=== PATIENT | male | born 1940 | race Caucasian/White ===

== ENCOUNTER 2016-04-06 14:07 | Emergency (ER) | payer MEDICARE, OTHER ==
[2016-04-06] MEDS ORDERED: DEXAMETHASONE 10 MG/ML VIAL PO STA (15:17)
[2016-04-06] MEDS ORDERED: ALBUTEROL NEB 2.5 MG/3 ML INH STA (15:17)
[2016-04-06] MEDS ORDERED: DEXAMETHASONE 10 MG/ML VIAL ONE (15:24)
[2016-04-06] MEDS ORDERED: CHERRY SYRUP 10 ML UDC PO ONE (15:24)
[2016-04-06] MEDS ORDERED: ALBUTEROL NEB 2.5 MG/3 ML INH ONE (15:31)
== END 2016-04-06 16:23 | disposition home or self-care (01) ==
DX: J06.9 Acute upper respiratory infection, unspecified (principal); J44.9 Chronic obstructive pulmonary disease, unspecified; J45.909 Unspecified asthma, uncomplicated; I25.10 Atherosclerotic heart disease of native coronary artery without angina pectoris; Z95.5 Presence of coronary angioplasty implant and graft; Z86.73 Personal history of transient ischemic attack (TIA), and cerebral infarction without residual deficits; Z79.82 Long term (current) use of aspirin
CPT/HCPCS: 94640; 99283; A9270; J7613

== ENCOUNTER 2016-07-12 08:02 | Outpatient (CLI) | payer MEDICARE, OTHER | END 2016-07-12 08:03 | disposition home or self-care (01) | DX: I10 Essential (primary) hypertension (principal); E67.3 Hypervitaminosis D; E78.2 Mixed hyperlipidemia; I25.10 Atherosclerotic heart disease of native coronary artery without angina pectoris; I77.9 Disorder of arteries and arterioles, unspecified ==

== ENCOUNTER 2017-01-14 07:10 | Outpatient (CLI) | payer MEDICARE, OTHER ==
[2017-01-14 12:28] LABS: ALBUMIN/GLOBULIN RATIO 1.6 (1.0-2.2); BILIRUBIN,TOTAL 0.7 mg/dL (0.2-1.0); BUN - BLOOD UREA NITROGEN 26 mg/dL (6-20); CALCIUM 8.7 mg/dL (8.5-10.3); CARBON DIOXIDE - CO2 22 mmol/L (21-32); CHLORIDE 107 mmol/L (101-111); CHOL/HDL RATIO 3.6 (<5.0); CHOLESTEROL 164 mg/dL; CREATININE 1.2 mg/dL (0.6-1.2); GFR - MDRD 59 (>89); GLUCOSE 101 mg/dL (70-100); HDL CHOLESTEROL 46 mg/dL; LDL/HDL RATIO 1.7 (<3.6); POTASSIUM 4.2 mmol/L (3.5-5.0); SODIUM 138 mmol/L (135-145); TOTAL PROTEIN 6.5 g/dL (6.7-8.2); TRIGLYCERIDES 206 mg/dL; VLDL CHOLESTEROL 41 mg/dL
== END 2017-01-14 07:11 | disposition home or self-care (01) ==
LOC: LAB.F 07:10
PROVIDERS: ATTEND Internal Medicine Cardiovascular Disease
DX: E67.3 Hypervitaminosis D (principal); E78.5 Hyperlipidemia, unspecified; I48.0 Paroxysmal atrial fibrillation; I10 Essential (primary) hypertension; I25.10 Atherosclerotic heart disease of native coronary artery without angina pectoris
CPT/HCPCS: 36415; 80053; 80061; 82306

== ENCOUNTER 2017-09-20 07:15 | Outpatient (CLI) | payer MEDICARE, OTHER ==
[2017-09-20 11:03] LABS: ALBUMIN 4.1 g/dL (3.2-5.5); ALBUMIN/GLOBULIN RATIO 1.6 (1.0-2.2); ALKALINE PHOSPHATASE 49 IU/L (42-121); ALT ALANINE AMINOTRANSFERASE 33 IU/L (10-60); AST ASPARTATE AMINOTRANSFERASE 33 IU/L (10-42); BILIRUBIN,TOTAL 0.9 mg/dL (0.2-1.0); BUN - BLOOD UREA NITROGEN 30 mg/dL (6-20); CALCIUM 9.2 mg/dL (8.5-10.3); CARBON DIOXIDE - CO2 28 mmol/L (21-32); CHLORIDE 100 mmol/L (101-111); CHOL/HDL RATIO 2.8 (<5.0); CHOLESTEROL 116 mg/dL; CREATININE 1.5 mg/dL (0.6-1.2); GFR - MDRD 45 (>89); GLUCOSE 93 mg/dL (70-100); HDL CHOLESTEROL 41 mg/dL; LDL CHOLESTEROL,CALCULATED 58 mg/dL; LDL/HDL RATIO 1.4 (<3.6); SODIUM 136 mmol/L (135-145); TOTAL PROTEIN 6.6 g/dL (6.7-8.2); VLDL CHOLESTEROL 17 mg/dL
== END 2017-09-20 07:16 | disposition home or self-care (01) ==
LOC: LAB.F 07:15
PROVIDERS: ATTEND Internal Medicine Cardiovascular Disease
DX: E78.5 Hyperlipidemia, unspecified (principal); E67.3 Hypervitaminosis D; I25.10 Atherosclerotic heart disease of native coronary artery without angina pectoris
CPT/HCPCS: 36415; 80053; 80061; 82306; 83721

== ENCOUNTER 2017-12-02 10:08 | Emergency (ER) | payer MEDICARE, OTHER ==
--- NOTE | 2017-12-02 11:08 | ED Physician Documentation ---
PD HPI UPPER EXT INJURY - Stated complaint Stated Complaint: LEFT ARM PX - Chief complaint Chief Complaint: Ext Problem - History obtained from History obtained from: Patient - History of Present Illness Location: Left, Arm Type of injury: Other (No injury.) Timing - onset: Today Worsened by: Moving, Palpating Associated symptoms: No: Weakness, Numbness Similar symptoms before: Has not had sx before - Additonal information Additional information: The patient is a 77-year-old male who presents with soreness in his left upper arm in the trapezius musculature. He awoke this morning with the discomfort. He denies any traumatic injury. The pain is worse when flexing or extending his elbow. He denies chest pain, shortness of breath, cough, or fever. He denies history of similar symptoms in the past. He is right hand dominant. His medical history is significant for coronary artery disease for which he is status post coronary stents. He also has history of CVA, which caused left sided weakness which has since resolved, without residual. Review of Systems Constitutional: denies: Fever Ears: denies: Tinnitus/ringing Nose: denies: Congestion Throat: denies: Sore throat Cardiac: denies: Chest pain / pressure Respiratory: denies: Dyspnea, Cough GI: denies: Abdominal Pain, Nausea, Vomiting : denies: Dysuria Skin: denies: Rash Musculoskeletal: reports: Extremity pain (left upper arm). denies: Neck pain, Back pain, Joint pain Neurologic: denies: Focal weakness, Numbness, Headache PD PAST MEDICAL HISTORY - Past Medical History Past Medical History: Yes Cardiovascular: Hypertension, High cholesterol, Coronary artery disease Respiratory: Asthma Neuro: Other Psych: Depression Other Past Medical History: Stroke - Past Surgical History Past Surgical History: Yes General: Appendectomy Cardiovascular: Coronary stent, Cardiac catheterization, Other - Present Medications Home Medications: Ambulatory Orders Medication Instructions Recorded Confirmed Atorvastatin Calcium [Lipitor] 40 mg PO DAILY 07/13/13 12/02/17 Desvenlafaxine Succinate [Pristiq 150 mg PO DAILY 07/13/13 12/02/17 ER] Metoprolol Succinate [Toprol Xl] 50 mg PO DAILY 07/13/13 12/02/17 Aspirin [Adult Low Dose Aspirin EC] 81 mg PO AC 12/03/13 12/02/17 Losartan [Cozaar] 1 09/14/18 - Allergies Allergies/Adverse Reactions: Allergies Allergy/AdvReac Type Severity Reaction Status Date / Time Sulfa (Sulfonamide Allergy Severe Hives Verified 12/02/17 10:18 Antibiotics) - Social History Does the pt smoke?: No Smoking Status: Never smoker Does the pt drink ETOH?: Yes Does the pt have substance abuse?: No - Immunizations Immunizations are current?: Yes PD ED PE NORMAL - Vitals Vital signs reviewed: Yes (Borderline systolic hypertension initially.) - General General: Alert and oriented X 3, Well developed/nourished - HEENT HEENT: Atraumatic - Neck Neck: No adenopathy, No JVD - Cardiac Cardiac: RRR - Respiratory Respiratory: No respiratory distress, Clear bilaterally - Abdomen Abdomen: Soft, Non tender - Back Back: No CVA TTP - Derm Derm: No rash - Extremities Extremities: No edema, No calf tenderness / cord, Other (There is tenderness to palpation over the left trapezius musculature. This reproduces his symptoms. The discomfort is exacerbated by extension of the left elbow against resistance. Distal neurovascular is intact.) - Neuro Neuro: Alert and oriented X 3, No motor deficit, No sensory deficit Results - Vitals Vitals: Oxygen O2 Source Room air - EKG (time done) 10:54 Rate: Rate (enter#) (60) Rhythm: NSR Intervals: Normal [place], Other (RSR' in lead V2.) Ischemia: Q waves (in leads III and aVF, consistent with previous inferior TX.) Compare to prior EKG: Unchanged from prior EKG Computer interpretation: Agree with computer - Rads (name of study) left humerus Radiology: Prelim report reviewed, EMP read contemporaneously, See rad report (No acute osseous abnormality.) PD MEDICAL DECISION MAKING - ED course Complexity details: reviewed results, re-evaluated patient, considered differential, d/w patient, d/w family ED course: The patient's presentation is most consistent with left trapezius muscle strain. Electrocardiogram reveals no evidence of acute myocardial injury. X-ray of the left humerus reveals no evidence of bony abnormality. I discussed with the patient and his the likely diagnosis, symptomatic treatment and outpatient follow-up, as well as potentially worrisome signs or symptoms that should prompt reevaluation in the emergency department. - Sepsis Event Vital Signs: Oxygen O2 Source Room air Departure - Departure Disposition: 01 Home, Self Care Clinical Impression: Muscle strain Condition: Stable Instructions: ED Strain Muscle Ext Comments: You can use Tylenol or ibuprofen if needed for discomfort. Apply ice pack to your triceps area intermittently for the next 2 or 3 days. Follow up with your primary physician if not improving within 1 week. Return to the emergency department if increasing pain, or otherwise worsening symptoms. Discharge Date/Time: 12/02/17 11:45
--- NOTE | 2017-12-02 11:14 | XRAY Report ---
Reason: left upper arm pain Procedure Date: 12/02/2017 Accession Number: [id number] / [id number] Procedure: XR - Humerus LT CPT Code: FULL RESULT: EXAM: LEFT HUMERUS RADIOGRAPHY EXAM DATE: 12/02/2017 11:03 AM. CLINICAL HISTORY: Left upper arm pain. No known trauma. COMPARISON: None. TECHNIQUE: 2 views. FINDINGS: Bones: Normal. No fractures or bone lesions. Joints: No effusions or subluxations in the visualized shoulder or elbow joints. There is mild degenerative change of the acromioclavicular joint. Soft Tissues: Normal. No soft tissue swelling. IMPRESSION: No acute osseous abnormality. RADIA
[2017-12-02 11:42] VITALS: BP 115/86
== END 2017-12-02 11:45 | disposition home or self-care (01) ==
LOC: ED 10:08
DX: S46.812A Strain of other muscles, fascia and tendons at shoulder and upper arm level, left arm, initial encounter (principal); X58.XXXA Exposure to other specified factors, initial encounter; R94.31 Abnormal electrocardiogram [ECG] [EKG]; I10 Essential (primary) hypertension; I25.10 Atherosclerotic heart disease of native coronary artery without angina pectoris; E78.00 Pure hypercholesterolemia, unspecified; Z95.5 Presence of coronary angioplasty implant and graft; Z79.82 Long term (current) use of aspirin; Z86.73 Personal history of transient ischemic attack (TIA), and cerebral infarction without residual deficits
CPT/HCPCS: 93005; 99283

== ENCOUNTER 2018-10-16 17:05 | Emergency (ER) | payer MEDICARE, OTHER ==
--- NOTE | 2018-10-16 17:41 | ED Physician Documentation ---
PD HPI URI - Stated complaint Stated Complaint: SORE THROAT - Chief complaint Chief Complaint: General - History obtained from History obtained from: Patient - History of Present Illness Timing - onset: How many weeks ago (1) Timing duration: Weeks (1) Timing details: Gradual onset, Still present (worsening steadily, with feeling of swelling in back of throat.) Associated symptoms: Sore throat. No: Fever, Nasal congestion, Swollen nodes, Dry cough, Chest pain, NVD Contributing factors: No: Sick contact, COPD / asthma Similar symptoms before: Has not had sx before Recently seen: Not recently seen Review of Systems Constitutional: denies: Fever, Myalgias Nose: reports: Congestion, Sinus pressure / pain. denies: Rhinorrhea / runny nose Throat: reports: Sore throat. denies: Oral lesions / sores Cardiac: denies: Chest pain / pressure, Palpitations Respiratory: denies: Cough GI: denies: Nausea, Vomiting, Diarrhea Skin: denies: Rash PD PAST MEDICAL HISTORY - Past Medical History Cardiovascular: Hypertension, High cholesterol, Coronary artery disease Respiratory: Asthma Neuro: Other Psych: Depression - Past Surgical History Past Surgical History: Yes General: Appendectomy Cardiovascular: Coronary stent, Cardiac catheterization, Other - Present Medications Home Medications: Ambulatory Orders Medication Instructions Recorded Confirmed Atorvastatin Calcium [Lipitor] 40 mg PO DAILY 07/13/13 12/02/17 Desvenlafaxine Succinate [Pristiq 150 mg PO DAILY 07/13/13 12/02/17 ER] Metoprolol Succinate [Toprol Xl] 50 mg PO DAILY 07/13/13 12/02/17 Aspirin [Adult Low Dose Aspirin EC] 81 mg PO AC 12/03/13 12/02/17 Losartan [Cozaar] 1 12/02/17 Cephalexin [Keflex] 500 mg PO TID #21 capsule 10/16/18 dexAMETHasone [Decadron] 4 mg PO DAILY #5 tablet 10/16/18 - Allergies Allergies/Adverse Reactions: Allergies Allergy/AdvReac Type Severity Reaction Status Date / Time Sulfa (Sulfonamide Allergy Severe Hives Verified 10/16/18 17:17 Antibiotics) - Social History Does the pt smoke?: No Smoking Status: Never smoker Does the pt drink ETOH?: Yes Does the pt have substance abuse?: No - Immunizations Immunizations are current?: Yes PD ED PE NORMAL - Vitals Vital signs reviewed: Yes - General General: Alert and oriented X 3, No acute distress, Well developed/nourished - HEENT HEENT: Ears normal, Moist mucous membranes. No: Pharynx benign (posterior pharynx with some edema of posterior soft palatte and moderate boggy edema of the uvula, with some redness. No exudate per se. ) - Neck Neck: Supple, no meningeal sign, No adenopathy - Cardiac Cardiac: RRR, No murmur - Respiratory Respiratory: Clear bilaterally - Abdomen Abdomen: Soft, Non tender Results - Vitals Vitals: Vital Signs - 24 hr 10/16/18 10/16/18 17:13 18:19 Temperature 37.2 C 36.8 C Heart Rate 86 83 Respiratory 20 18 Rate Blood Pressure 150/87 H 138/78 H O2 Saturation 96 96 Oxygen O2 Source Room air - Labs Labs: Laboratory Tests 10/16/18 17:28 Group A Strep Rapid Negative PD MEDICAL DECISION MAKING - ED course Complexity details: reviewed results, considered differential (edema and soreness without exudate nor adenopathy. Consider nongroup A strep or more concerning would be angioedema.), d/w patient Departure - Departure Disposition: 01 Home, Self Care Clinical Impression: Sore throat, Pharyngeal edema Condition: Stable Record reviewed to determine appropriate education?: Yes Instructions: ED Angioedema, ED Uvulitis Follow-Up: Maury Armando MD [Primary Care Provider] - Prescriptions: Cephalexin [Keflex] 500 mg PO TID #21 capsule dexAMETHasone [Decadron] 4 mg PO DAILY #5 tablet Comments: Stay well-hydrated. Decadron steroid for inflammation daily for the next 5 days. We will treat with cephalexin antibiotic at this point pending at least the throat culture results in 2 to 3 days. This may be an infectious process. However would be concerned for your lisinopril causing the swelling at the back of the throat noted suggest that you stop the lisinopril medication for now. Follow-up with your primary care regarding other medication instead. If the culture does show a true infection, then he can resume the blood pressure medicine as that would not be the cause. However if the culture is negative to mild and not be more inclined to think the lisinopril is the cause. Discharge Date/Time: 10/16/18 18:20
[2018-10-16] MEDS ORDERED: DEXAMETHASONE 10 MG/ML VIAL PO STA (17:59)
[2018-10-16] MEDS ORDERED: CHERRY SYRUP 10 ML UDC PO ONE (17:59)
[2018-10-16] MEDS ORDERED: cephALEXin 250 MG CAPSULE PO STA (17:59)
[2018-10-16] MEDS ORDERED: CETIRIZINE 10 MG TABLET PO STA (18:00)
[2018-10-16 18:20] VITALS: BP 138/78
== END 2018-10-16 18:20 | disposition home or self-care (01) ==
LOC: ED 17:05
DX: J02.9 Acute pharyngitis, unspecified (principal); J39.2 Other diseases of pharynx; I10 Essential (primary) hypertension
CPT/HCPCS: 87070; 87430; 99283; 99284; A9270

== ENCOUNTER 2019-01-23 07:56 | Outpatient (CLI) | payer MEDICARE, OTHER ==
[2019-01-23 10:19] LABS: ALBUMIN 3.9 g/dL (3.2-5.5); ALBUMIN/GLOBULIN RATIO 1.6 (1.0-2.2); ALKALINE PHOSPHATASE 42 IU/L (42-121); ALT ALANINE AMINOTRANSFERASE 27 IU/L (10-60); AST ASPARTATE AMINOTRANSFERASE 23 IU/L (10-42); BILIRUBIN,TOTAL 0.8 mg/dL (0.2-1.0); BUN - BLOOD UREA NITROGEN 27 mg/dL (6-20); CALCIUM 8.7 mg/dL (8.5-10.3); CARBON DIOXIDE - CO2 26 mmol/L (21-32); CHLORIDE 107 mmol/L (101-111); CHOLESTEROL 164 mg/dL; CREATININE 1.4 mg/dL (0.6-1.2); GFR - MDRD 49 (>89); GLUCOSE 103 mg/dL (70-100); HDL CHOLESTEROL 54 mg/dL; LDL CHOLESTEROL,CALCULATED 79 mg/dL; LDL/HDL RATIO 1.5 (<3.6); SODIUM 141 mmol/L (135-145); TOTAL PROTEIN 6.4 g/dL (6.7-8.2); VLDL CHOLESTEROL 31 mg/dL
== END 2019-01-23 07:57 | disposition home or self-care (01) ==
LOC: LAB.S 07:56
PROVIDERS: ATTEND Internal Medicine Cardiovascular Disease
DX: I25.10 Atherosclerotic heart disease of native coronary artery without angina pectoris (principal); I10 Essential (primary) hypertension; E78.5 Hyperlipidemia, unspecified
CPT/HCPCS: 36415; 80053; 80061; 83721

== ENCOUNTER 2019-11-11 17:58 | Emergency (ER) | payer MEDICARE, OTHER ==
--- NOTE | 2019-11-11 18:06 | ED Physician Documentation ---
PD HPI LOWER EXT INJURY - Stated complaint Stated Complaint: L FOOT PAIN - History obtained from History obtained from: Patient - History of Present Illness PD HPI LOW EXT INJURY LOCATION: Left - Additional information Additional information: 79-year-old gentleman otherwise healthy but remote history of gout presents with 2 days of left foot pain across the metatarsals with some warmth and redness. It was after traveling and getting dehydrated. He is not sure if it feels like previous gout but thinks it probably does. He is not on allopurinol. Declines pain medication on initial evaluation but probably would like something to go home with. There was no specific trauma. Review of Systems Constitutional: reports: Reviewed and negative Eyes: reports: Reviewed and negative Ears: reports: Reviewed and negative Nose: reports: Reviewed and negative PD PAST MEDICAL HISTORY - Past Medical History Cardiovascular: Hypertension, High cholesterol, Coronary artery disease Respiratory: Asthma Neuro: Other Psych: Depression - Past Surgical History Past Surgical History: Yes General: Appendectomy Cardiovascular: Coronary stent, Cardiac catheterization, Other - Present Medications Home Medications: Ambulatory Orders Medication Instructions Recorded Confirmed Atorvastatin Calcium [Lipitor] 40 mg PO DAILY 07/13/13 12/02/17 Desvenlafaxine Succinate [Pristiq 150 mg PO DAILY 07/13/13 12/02/17 ER] Metoprolol Succinate [Toprol Xl] 50 mg PO DAILY 07/13/13 12/02/17 Aspirin [Adult Low Dose Aspirin EC] 81 mg PO AC 12/03/13 12/02/17 Losartan [Cozaar] 1 12/02/17 Cephalexin [Keflex] 500 mg PO TID #21 capsule 10/16/18 dexAMETHasone [Decadron] 4 mg PO DAILY #5 tablet 10/16/18 Hydrocodone/Acetaminophen 1 - 2 tab PO Q6H PRN #10 tablet 11/11/19 [Hydrocodone-Acetamin 5-325 mg] Indomethacin [Indocin] 25 mg PO BIDWM #10 capsule 11/11/19 - Allergies Allergies/Adverse Reactions: Allergies Allergy/AdvReac Type Severity Reaction Status Date / Time Sulfa (Sulfonamide Allergy Severe Hives Verified 10/16/18 17:17 Antibiotics) - Social History Does the pt smoke?: No Smoking Status: Never smoker Does the pt drink ETOH?: Yes Does the pt have substance abuse?: No - Immunizations Immunizations are current?: Yes PD ED PE NORMAL - Vitals Vital signs reviewed: Yes - General General: Alert and oriented X 3, No acute distress - HEENT HEENT: PERRL, EOMI - Neck Neck: Supple, no meningeal sign, No bony TTP - Extremities Extremities: Other (There is warmth and redness that seems focused around the first MTP of the left foot. He has mild pain with range of motion of the same digit. Normal pedal pulses and cap refill. No swelling or pain at or above the ankle.) - Neuro Neuro: Alert and oriented X 3, Normal speech Results - Vitals Vitals: Vital Signs - 24 hr 11/11/19 11/11/19 11/11/19 18:08 18:12 19:06 Temperature 36.8 C 36.8 C 36.7 C Heart Rate 84 84 79 Respiratory 18 18 18 Rate Blood Pressure 116/73 116/73 107/68 O2 Saturation 98 98 97 Oxygen O2 Source Room air - Labs Labs: Laboratory Tests 11/11/19 11/11/19 18:10 18:10 WBC 7.4 RBC 3.79 L Hgb 12.5 L Hct 37.9 L MCV 100.0 H MCH 33.0 H MCHC 33.0 RDW 13.0 Plt Count 157 MPV 8.9 Neut # (Auto) 4.5 Lymph # (Auto) 1.5 [place] # (Auto) 1.2 H Eos # (Auto) 0.1 Baso # (Auto) 0.0 Absolute Nucleated RBC 0.00 Nucleated RBC % 0.0 Sodium 136 Potassium 4.2 Chloride 105 Carbon Dioxide 22 Anion Gap 9.0 BUN 28 H Creatinine 1.5 H Estimated GFR (MDRD) 45 L Glucose 117 H Uric Acid 6.8 Calcium 9.0 Total Bilirubin 0.7 AST 20 ALT 22 Alkaline Phosphatase 60 Total Protein 6.8 Albumin 4.0 Globulin 2.8 Albumin/Globulin Ratio 1.4 Lipase 60 H PD MEDICAL DECISION MAKING - ED course ED course: 79-year-old gentleman with history of gout presents with an examination most consistent with same. He did not want an x-ray. Departure - Departure Disposition: 01 Home, Self Care Instructions: ED Arthritis Gout, ED Diet Gout Prescriptions: Hydrocodone/Acetaminophen [Hydrocodone-Acetamin 5-325 mg] 1 - 2 tab PO Q6H PRN #10 tablet PRN Reason: Pain Indomethacin [Indocin] 25 mg PO BIDWM #10 capsule Comments: For records today you have a very mild anemia with a hemoglobin of 12.5, he matocrit of 37.9. You have mild renal insufficiency which is stable over the last couple of years with a creatinine of 1.5 and a GFR of 45. Your uric acid is on the high level of normal at 6.8 which is suggestive of gout. Return for new or worsening symptoms. Follow-up with your doctor in about 3 days if not better. Keep it elevated. Ice it as needed. Discharge Date/Time: 11/11/19 19:22
[2019-11-11 18:16] LABS: BASOPHILS % (AUTO) 0.4 %; EOSINOPHILS # (AUTO) 0.1 10^3/uL (0.0-0.7); EOSINOPHILS % (AUTO) 1.8 %; HGB - HEMOGLOBIN 12.5 g/dL (14.0-18.0); LYMPHOCYTES # (AUTO) 1.5 10^3/uL (1.5-3.5); LYMPHOCYTES % (AUTO) 20.5 %; MEAN PLATELET VOLUME 8.9 fL (7.4-11.4); MONOCYTES # (AUTO) 1.2 10^3/uL (0.0-1.0); NEUTROPHILS # (AUTO) 4.5 10^3/uL (1.5-6.6); NEUTROPHILS % (AUTO) 60.1 %; PLT - PLATELET COUNT 157 10^3/uL (130-450); RED BLOOD COUNT 3.79 10^6/uL (4.70-6.10); WHITE BLOOD COUNT 7.4 x10^3/uL (4.8-10.8)
[2019-11-11 18:30] LABS: ALBUMIN/GLOBULIN RATIO 1.4 (1.0-2.2); BILIRUBIN,TOTAL 0.7 mg/dL (0.2-1.0); CREATININE 1.5 mg/dL (0.6-1.2); TOTAL PROTEIN 6.8 g/dL (6.7-8.2); URIC ACID 6.8 mg/dL (2.6-7.2)
[2019-11-11] MEDS ORDERED: HYDROcod/ACET 5/325 Prepack 4 PO STA (18:48)
[2019-11-11] MEDS ORDERED: INDOMETHACIN 25 MG CAPSULE PO STA (18:48)
[2019-11-11] MEDS ORDERED: COLCHICINE 0.6 MG TABLET PO STA (18:48)
[2019-11-11 19:08] VITALS: BP 107/68
== END 2019-11-11 19:22 | disposition home or self-care (01) ==
LOC: ED 17:58
DX: M10.072 Idiopathic gout, left ankle and foot (principal); D64.9 Anemia, unspecified; N28.9 Disorder of kidney and ureter, unspecified; I10 Essential (primary) hypertension; Z79.82 Long term (current) use of aspirin
CPT/HCPCS: 36415; 80053; 83690; 84550; 85025; 99284; A9270

== ENCOUNTER 2020-01-24 08:24 | Outpatient (CLI) | payer MEDICARE, OTHER ==
[2020-01-24 15:26] LABS: ALBUMIN 4.1 g/dL (3.2-5.5); ALBUMIN/GLOBULIN RATIO 1.6 (1.0-2.2); ALKALINE PHOSPHATASE 52 IU/L (42-121); ALT ALANINE AMINOTRANSFERASE 38 IU/L (10-60); AST ASPARTATE AMINOTRANSFERASE 33 IU/L (10-42); BILIRUBIN,TOTAL 0.7 mg/dL (0.2-1.0); BUN - BLOOD UREA NITROGEN 31 mg/dL (6-20); CALCIUM 8.8 mg/dL (8.5-10.3); CARBON DIOXIDE - CO2 23 mmol/L (21-32); CHLORIDE 105 mmol/L (101-111); CHOL/HDL RATIO 2.6 (<5.0); CHOLESTEROL 155 mg/dL; CREATININE 1.4 mg/dL (0.6-1.2); GLUCOSE 118 mg/dL (70-100); HDL CHOLESTEROL 59 mg/dL; LDL CHOLESTEROL,CALCULATED 43 mg/dL; LDL/HDL RATIO 0.7 (<3.6); SODIUM 136 mmol/L (135-145); TOTAL PROTEIN 6.7 g/dL (6.7-8.2); VLDL CHOLESTEROL 53 mg/dL
== END 2020-01-24 08:25 | disposition home or self-care (01) ==
LOC: LAB.S 08:24
PROVIDERS: ATTEND Internal Medicine Cardiovascular Disease
DX: I25.10 Atherosclerotic heart disease of native coronary artery without angina pectoris (principal); E78.2 Mixed hyperlipidemia; I48.0 Paroxysmal atrial fibrillation
CPT/HCPCS: 36415; 80053; 80061; 83721

== ENCOUNTER 2020-02-23 22:38 | Outpatient (CLI) | payer MEDICARE, OTHER | END 2020-02-23 22:39 | disposition critical access hospital (66) | LOC: EMS 22:38 | PROVIDERS: ATTEND Surgery | DX: R06.02 Shortness of breath (principal); R23.1 Pallor | CPT/HCPCS: A0425; A0429 ==

== ENCOUNTER 2020-02-23 23:06 | Emergency (ER) | payer MEDICARE, OTHER ==
[2020-02-24 00:06] LABS: BASOPHILS % (AUTO) 0.4 %; EOSINOPHILS # (AUTO) 0.2 10^3/uL (0.0-0.7); HGB - HEMOGLOBIN 12.9 g/dL (14.0-18.0); LYMPHOCYTES # (AUTO) 1.3 10^3/uL (1.5-3.5); LYMPHOCYTES % (AUTO) 24.7 %; MEAN CORPUSCULAR HEMOGLOBIN 33.9 pg (27.0-31.0); MEAN CORPUSCULAR HGB CONC 34.2 g/dL (32.0-36.0); NEUTROPHILS # (AUTO) 2.9 10^3/uL (1.5-6.6); NEUTROPHILS % (AUTO) 53.5 %; PLT - PLATELET COUNT 123 10^3/uL (130-450); RED BLOOD COUNT 3.81 10^6/uL (4.70-6.10); RED CELL DISTRIBUTION WIDTH 13.3 % (12.0-15.0); WHITE BLOOD COUNT 5.4 x10^3/uL (4.8-10.8)
[2020-02-24 00:19] LABS: ALBUMIN 3.9 g/dL (3.2-5.5); ALBUMIN/GLOBULIN RATIO 1.5 (1.0-2.2); BILIRUBIN,TOTAL 0.7 mg/dL (0.2-1.0); CALCIUM 8.7 mg/dL (8.5-10.3); CREATININE 1.9 mg/dL (0.6-1.2); TOTAL PROTEIN 6.5 g/dL (6.7-8.2)
--- NOTE | 2020-02-24 01:03 | ED Physician Documentation ---
PD HPI DYSPNEA - Stated complaint Stated Complaint: SOA - Chief complaint Chief Complaint: Resp - History obtained from History obtained from: Patient - History of Present Illness Timing - onset: Today (tonight, approximately 1 hour [employer]) Timing - onset during: Light activity Timing - duration: Minutes Timing - details: Abrupt onset Pain level max: 0 Pain level now: 0 Improved by: Rest Worsened by: Exertion Associated symptoms: No: Fever, Cough, Wheezing, Chest pain / discomfort, Palpitations, Diaphoresis, Bilateral edema, Unilateral edema Similar symptoms before: Has not had sx before Recently seen: Not recently seen - Additional information Additional information: BBIA for dyspnea. Patient was watching TV at home, stood up to go to bed. Upon standing, he had sudden onset shortness of breath which worsened as he ambulated up stairs. He denies CP. He called 911. His symptoms resolved by the time EMS arrived and he is asymptomatic on this HPI. He denies h/o similar symptoms Review of Systems Constitutional: denies: Fever, Chills, Sweats Cardiac: reports: Reviewed and negative Respiratory: reports: Dyspnea. denies: Cough, Hemoptysis, Wheezing GI: reports: Reviewed and negative Musculoskeletal: denies: Extremity swelling PD PAST MEDICAL HISTORY - Past Medical History Cardiovascular: Hypertension, High cholesterol, Coronary artery disease Respiratory: Asthma Neuro: Other Endocrine/Autoimmune: None GI: None : None HEENT: None Psych: Depression Musculoskeletal: None Derm: None - Past Surgical History Past Surgical History: Yes General: Appendectomy Cardiovascular: Coronary stent, Cardiac catheterization, Other - Present Medications Home Medications: Ambulatory Orders Medication Instructions Recorded Confirmed Atorvastatin Calcium [Lipitor] 40 mg PO DAILY 07/13/13 12/02/17 Desvenlafaxine Succinate [Pristiq 150 mg PO DAILY 07/13/13 12/02/17 ER] Metoprolol Succinate [Toprol Xl] 50 mg PO DAILY 07/13/13 12/02/17 Aspirin [Adult Low Dose Aspirin EC] 81 mg PO AC 12/03/13 12/02/17 Losartan [Cozaar] 1 12/02/17 Cephalexin [Keflex] 500 mg PO TID #21 capsule 10/16/18 dexAMETHasone [Decadron] 4 mg PO DAILY #5 tablet 10/16/18 Hydrocodone/Acetaminophen 1 - 2 tab PO Q6H PRN #10 tablet 11/11/19 [Hydrocodone-Acetamin 5-325 mg] Indomethacin [Indocin] 25 mg PO BIDWM #10 capsule 11/11/19 - Allergies Allergies/Adverse Reactions: Allergies Allergy/AdvReac Type Severity Reaction Status Date / Time Sulfa (Sulfonamide Allergy Severe Hives Verified 02/23/20 23:17 Antibiotics) - Social History Does the pt smoke?: No Smoking Status: Never smoker Does the pt drink ETOH?: Yes Does the pt have substance abuse?: No - Immunizations Immunizations are current?: Yes PD ED PE NORMAL - Vitals Vital signs reviewed: Yes - General General: Alert and oriented X 3, No acute distress, Well developed/nourished - Neck Neck: Supple, no meningeal sign - Cardiac Cardiac: RRR, No murmur, No gallop, No rub - Respiratory Respiratory: No respiratory distress, Clear bilaterally - Abdomen Abdomen: Soft, Non tender - Derm Derm: Normal color, Warm and dry - Extremities Extremities: No edema Results - Vitals Vitals: Oxygen O2 Source Room air - EKG (time done) No standard instances Rate: Rate (enter#) (89) Rhythm: NSR [place]: LAD Intervals: Normal [place] QRS: Normal Ischemia: Normal ST segments, Q waves (III, aVF) - Labs Labs: Laboratory Tests 02/23/20 02/24/20 02/24/20 23:07 00:00 00:00 WBC 5.4 RBC 3.81 L Hgb 12.9 L Hct 37.7 L MCV 99.0 H MCH 33.9 H MCHC 34.2 RDW 13.3 Plt Count 123 L MPV 9.0 Neut # (Auto) 2.9 Lymph # (Auto) 1.3 L [place] # (Auto) 1.0 Eos # (Auto) 0.2 Baso # (Auto) 0.0 Absolute Nucleated RBC 0.00 Nucleated RBC % 0.0 Sodium 139 Potassium 3.3 L Chloride 107 Carbon Dioxide 20 L Anion Gap 12.0 BUN 32 H Creatinine 1.9 H Estimated GFR (MDRD) 34 L Glucose 113 H Calcium 8.7 Total Bilirubin 0.7 AST 25 ALT 27 Alkaline Phosphatase 56 Troponin I High Sens Total Protein 6.5 L Albumin 3.9 Globulin 2.6 Albumin/Globulin Ratio 1.5 Lipase 47 Urine Color YELLOW Urine Clarity CLEAR Urine pH 5.5 Ur Specific [place] 1.010 Urine Protein NEGATIVE Urine Glucose (UA) NEGATIVE Urine Ketones TRACE Urine Occult Blood NEGATIVE Urine Nitrite NEGATIVE Urine Bilirubin NEGATIVE Urine Urobilinogen 0.2 (NORMAL) Ur Leukocyte Esterase NEGATIVE Ur Microscopic Review NOT INDICATED Urine Culture Comments NOT INDICATED 02/24/20 00:00 WBC RBC Hgb Hct MCV MCH MCHC RDW Plt Count MPV Neut # (Auto) Lymph # (Auto) [place] # (Auto) Eos # (Auto) Baso # (Auto) Absolute Nucleated RBC Nucleated RBC % Sodium Potassium Chloride Carbon Dioxide Anion Gap BUN Creatinine Estimated GFR (MDRD) Glucose Calcium Total Bilirubin AST ALT Alkaline Phosphatase Troponin I High Sens 13.3 Total Protein Albumin Globulin Albumin/Globulin Ratio Lipase Urine Color Urine Clarity Urine pH Ur Specific [place] Urine Protein Urine Glucose (UA) Urine Ketones Urine Occult Blood Urine Nitrite Urine Bilirubin Urine Urobilinogen Ur Leukocyte Esterase Ur Microscopic Review Urine Culture Comments - Rads (name of study) chest xray Radiology: Prelim report reviewed, See rad report PD MEDICAL DECISION MAKING - ED course Complexity details: reviewed results, re-evaluated patient, considered differential, d/w patient Departure - Departure Disposition: Home, Self Care Clinical Impression: Dyspnea Condition: Good Instructions: ED Dyspnea Shortness of Breath Follow-Up: Maury Armando MD [Primary Care Provider] - Discharge Date/Time: 02/24/20 01:36
[2020-02-24 01:33] VITALS: BP 140/76
[2020-02-24 01:38] LABS: BILIRUBIN,URINE NEGATIVE (NEGATIVE); GLUCOSE, URINE (UA) NEGATIVE (NEGATIVE); KETONES,URINE (UA) TRACE mg/dL (NEGATIVE); LEUKOCYTE ESTERASE, URINE NEGATIVE (NEGATIVE); NITRITE,URINE NEGATIVE (NEGATIVE); OCCULT BLOOD,URINE NEGATIVE (NEGATIVE); PH,URINE 5.5 PH (5.0-7.5); PROTEIN,URINE NEGATIVE (NEGATIVE); UROBILINOGEN,URINE 0.2 (NORMAL) E.U./dL (NORMAL)
[2020-02-24 01:41] LABS: CLARITY,URINE CLEAR (CLEAR)
--- NOTE | 2020-02-24 11:33 | XRAY Report ---
PROCEDURE: Chest 1 View X-Ray INDICATIONS: Chest pain TECHNIQUE: One view of the chest was acquired. COMPARISON: 07/13/2013 FINDINGS: Surgical changes and devices: None. Lungs and pleura: An incomplete inspiratory result is noted, with low lung volumes and crowding of t he vascular markings. There is blunting of the left costophrenic angle. Minimal opacity is seen at th e left lung base. No pneumothorax. The right lung appears clear. Mediastinum: The aorta is prominent and tortuous. The cardiac contours are mildly enlarged. Bones and chest wall: No suspicious bony lesions. Age-appropriate degenerative changes are seen. Overlying soft tissues appear unremarkable. IMPRESSION: Mild cardiomegaly. Minimal streaky opacity can be seen involving the left lower lobe, with a trace left-sided pleural ef fusion. Differential diagnosis includes atelectasis and infiltrate. Note: No significant discrepancy from the preliminary report. Reviewed by: Denny Beck MD on 02/24/2020 10:32 AM [facility] Approved by: Denny Beck MD on 02/24/2020 10:32 AM [facility] Station ID: [id number]
== END 2020-02-24 01:36 | disposition home or self-care (01) ==
LOC: EDUNIT# → ED 23:06
DX: R06.02 Shortness of breath (principal); I10 Essential (primary) hypertension; I25.10 Atherosclerotic heart disease of native coronary artery without angina pectoris; Z95.5 Presence of coronary angioplasty implant and graft; Z79.82 Long term (current) use of aspirin
CPT/HCPCS: 36415; 80053; 81001; 81003; 83690; 84484; 85025; 87086; 93005; 99284

== ENCOUNTER 2021-07-30 07:21 | Outpatient (CLI) | payer MEDICARE, OTHER ==
[2021-07-30 15:58] LABS: ALBUMIN 3.9 g/dL (3.2-5.5); ALBUMIN/GLOBULIN RATIO 1.6 (1.0-2.2); ALKALINE PHOSPHATASE 42 IU/L (42-121); ALT ALANINE AMINOTRANSFERASE 27 IU/L (10-60); AST ASPARTATE AMINOTRANSFERASE 24 IU/L (10-42); BILIRUBIN,TOTAL 0.8 mg/dL (0.2-1.0); BUN - BLOOD UREA NITROGEN 34 mg/dL (6-20); CALCIUM 8.5 mg/dL (8.5-10.3); CARBON DIOXIDE - CO2 22 mmol/L (21-32); CHLORIDE 105 mmol/L (101-111); CHOL/HDL RATIO 2.8 (<5.0); CHOLESTEROL 134 mg/dL; CREATININE 1.5 mg/dL (0.6-1.2); GFR - MDRD 45 (>89); GLUCOSE 109 mg/dL (70-100); HDL CHOLESTEROL 48 mg/dL; LDL CHOLESTEROL,CALCULATED 46 mg/dL; POTASSIUM 4.1 mmol/L (3.5-5.0); SODIUM 135 mmol/L (135-145); TOTAL PROTEIN 6.4 g/dL (6.7-8.2); TRIGLYCERIDES 199 mg/dL; VLDL CHOLESTEROL 40 mg/dL
== END 2021-07-30 07:22 | disposition home or self-care (01) ==
LOC: LAB.S 07:21
PROVIDERS: ATTEND Internal Medicine Cardiovascular Disease
DX: E78.2 Mixed hyperlipidemia (principal)
CPT/HCPCS: 36415; 80053; 80061; 83721

== ENCOUNTER 2022-03-01 09:20 | Outpatient (CLI) | payer MEDICARE, OTHER ==
[2022-03-01 15:33] LABS: ALBUMIN 3.8 g/dL (3.2-5.5); ALBUMIN/GLOBULIN RATIO 1.5 (1.0-2.2); ALKALINE PHOSPHATASE 52 IU/L (42-121); ALT ALANINE AMINOTRANSFERASE 26 IU/L (10-60); AST ASPARTATE AMINOTRANSFERASE 25 IU/L (10-42); BILIRUBIN,TOTAL 0.4 mg/dL (0.2-1.0); BUN - BLOOD UREA NITROGEN 30 mg/dL (6-20); CALCIUM 8.8 mg/dL (8.5-10.3); CARBON DIOXIDE - CO2 24 mmol/L (21-32); CHLORIDE 105 mmol/L (101-111); CHOL/HDL RATIO 2.8 (<5.0); CHOLESTEROL 142 mg/dL; CREATININE 1.5 mg/dL (0.6-1.2); GFR - MDRD 45 (>89); GLUCOSE 89 mg/dL (70-100); HDL CHOLESTEROL 51 mg/dL; LDL CHOLESTEROL,CALCULATED 42 mg/dL; LDL/HDL RATIO 0.8 (<3.6); POTASSIUM 4.5 mmol/L (3.5-5.0); SODIUM 139 mmol/L (135-145); TOTAL PROTEIN 6.4 g/dL (6.7-8.2); TRIGLYCERIDES 245 mg/dL; VLDL CHOLESTEROL 49 mg/dL
== END 2022-03-01 09:21 | disposition home or self-care (01) ==
LOC: LAB.S 09:20
PROVIDERS: ATTEND Internal Medicine Cardiovascular Disease
DX: E78.2 Mixed hyperlipidemia (principal)
CPT/HCPCS: 36415; 80053; 80061; 83721

== ENCOUNTER 2023-04-09 18:36 | Outpatient (CLI) | payer MEDICARE, OTHER | END 2023-04-09 23:59 | disposition EMS.NT | LOC: EMS 18:36 | DX: Z03.89 Encounter for observation for other suspected diseases and conditions ruled out (principal) ==

== ENCOUNTER 2023-07-25 21:03 | Outpatient (CLI) | payer MEDICARE, OTHER | END 2023-07-25 21:04 | disposition EMS.NT | LOC: EMS 21:03 | DX: R53.1 Weakness (principal) ==

== ENCOUNTER 2024-10-24 17:17 | Inpatient (IN) ==
[2024-10-24 18:20] LABS: HCT - HEMATOCRIT 37.9 % (42.0-52.0); HGB - HEMOGLOBIN 12.6 g/dL (14.0-18.0); MEAN PLATELET VOLUME 8.5 fL (7.4-11.4); NRBC ABSOLUTE COUNT (AUTO) 0.00 x10^3/uL; NUCLEATED RED BLOOD CELLS AUTO 0.0 /100WBC; PLT - PLATELET COUNT 157 10^3/uL (130-450); RED CELL DISTRIBUTION WIDTH 13.1 % (12.0-15.0)
[2024-10-24 18:36] LABS: ALT ALANINE AMINOTRANSFERASE 29.0 IU/L (10-60); AST ASPARTATE AMINOTRANSFERASE 25.0 IU/L (10-42); BUN - BLOOD UREA NITROGEN 39.0 mg/dL (6-20); CARBON DIOXIDE - CO2 24.0 mmol/L (21-32); CREATININE 1.8 mg/dL (0.6-1.3); GFR - MDRD 36.0 (>89)
[2024-10-24] MEDS: SODIUM CHLORIDE 0.9% 1,000 ML IV STA (18:57)
--- NOTE | 2024-10-24 19:05 | ED Physician Documentation ---
History of Present Illness Stated complaint Stated Complaint: CHILLS/SHAKING/WEAK Chief complaint Chief Complaint: Neuro History obtained from History obtained from: Patient History of Present Illness Timing: Prior to arrival Additonal information Additional information: Patient 84-year-old male with past medical history of hypertension, history of hyperlipidemia currently on a GLP-1 within the last 3 months presents to the emergency department with chills and rigors that started this morning around 4 AM he felt he could not get warm enough and had persistent chills slightly down to this afternoon and had generalized weakness. He notes he is feeling better now but continues to feel weak. No nausea vomiting abdominal pain cramping or urinary symptoms no cough congestion or fevers associated symptoms notes he was feeling fine yesterday denies ever having any symptoms yesterday. No new wounds or rashes. Meds/Allgy Home Medications Ambulatory Orders Medication Instructions Recorded Confirmed metoprolol succinate 50 mg 50 mg PO DAILY 07/13/1310/12 tablet,extended release 24 hr aspirin 81 mg tablet,delayed 81 mg PO DAILY 12/03/13 0 10/25/24 release (Adult Low Dose Aspirin) losartan 50 mg tablet See Rx Instructions PO DAILY 12/02/17 10/25/24 coQ10 (ubiquinol) 100 mg capsule 100 mg PO DAILY 10/2510/25/24 desvenlafaxine succinate 100 mg 100 mg PO DAILY 10/25/24 tablet,extended release 24 hr finasteride 5 mg tablet 5 mg PO HS 10/25/24 10/25/24 gabapentin 300 mg capsule 300 mg PO HS 10/25/24 icosapent ethyl 1 gram capsule 2 g PO BID 10/25/2410/12 omeprazole 20 mg capsule,delayed 20 mg PO DAILY 10/25/24 release rosuvastatin 40 mg tablet 40 mg PO HS 10/25/24 5 tamsulosin 0.4 mg capsule 0.8 mg PO DAILY 10/25/2410/12 tirzepatide (weight loss) 15 15 mg subcut OAW 10/25/24 10/25/24 mg/0.5 mL subcutaneous pen injector (Zepbound) tadalafil 5 mg tablet (Cialis) 5 mg PO .COMPLEX 10/26/24 Allergies Allergies Allergy/AdvReac Type Severity Reaction Status Date / Time Sulfa (Sulfonamide Allergy Severe Hives Verified 10/24/24 17:24 Antibiotics) lisinopril Allergy Mild Cough Verified 10/24/24 17:24 PFSH Active Problems All Active Problems (Updated 10/27/24 @ 00:11 by Yadi Cortes PA-C) BPH (benign prostatic hyperplasia) (Acute) Gram-negative bacteremia (Acute) Sleep apnea (Acute) Hypertension (Acute) Obesity (Acute) CAD (coronary artery disease) (Acute) SIRS (systemic inflammatory response syndrome) (Acute) Surgical History Surgical History (Updated 10/24/24 @ 21:44 by Jeana Morales RN) History of appendectomy History of appendectomy Social History Social History Smoking Status: Never smoker Do you vape?: No Living Condition: With spouse/s.o. Relationship: Level: Independent Home Mobility Equipment: Cane Do you feel safe in your home environment?: Yes Suffered physical, verbal, emotional, or financial abuse?: No History of Abuse: No ETOH Use: Frequency: Daily Number of Amount/day: 2 POLST Patient has POLST: No Exam Exam Vital Signs: Vital Signs x48h Temp Pulse Resp BP Pulse Ox 10/24/24 19:02 69 19 114/66 97 10/24/24 18:40 91 18 96 10/24/24 18:24 20 10/24/24 17:26 37.2 C 99 22 114/68 93 Constitutional normal general appearance HENMT normocephalic and head/scalp atraumatic Eyes PERRL, EOMs intact bilaterally and conjunctivae normal Neck/C-Spine visual inspection normal Lymph no lymphadenopathy noted Chest inspection of chest normal Respiratory breath sounds equal bilaterally, normal respiratory effort and clear to auscultation bilaterally Cardiovascular normal heart rate noted, regular rhythm noted, no gallop and no rub Gastrointestinal abdomen normal to inspection Genitourinary no CVA tenderness Back/Pelvis spine normal to inspection Extremities normal to inspection No lower leg swelling Skin skin color normal, no rash and no lesions Results Vitals Vitals: Oxygen O2 Source Room air Labs Labs: Microbiology 10/24/24 18:11 Blood Culture - Preliminary Blood - Left Arm Escherichia Coli 10/24/24 18:08 Blood Culture - Preliminary Blood - Right Arm Escherichia Coli 10/24/24 18:08 Blood Culture (PCR) - Final Blood - Right Arm Laboratory Tests 10/24/24 10/24/24 10/24/24 18:08 18:11 18:30 WBC 11.2 H RBC 3.96 L Hgb 12.6 L Hct 37.9 L MCV 95.7 H MCH 31.8 H MCHC 33.2 RDW 13.1 Plt Count 157 MPV 8.5 Neut # (Auto) 9.1 H Lymph # (Auto) 0.[address] [place] # (Auto) 1.2 H Eos # (Auto) 0.0 Baso # (Auto) 0.1 Absolute Nucleated RBC 0.00 Nucleated RBC % 0.0 Sodium 132 L Potassium 4.2 Chloride 102 Carbon Dioxide 24 Anion Gap 6.0 BUN 39 H Creatinine 1.8 H Estimated GFR (MDRD) 36 L Glucose 114 H POC Whole Bld Glucose Lactic Acid 1.1 Calcium 9.2 Total Bilirubin 0.8 AST 25 ALT 29 Alkaline Phosphatase 50 Total Protein 6.7 Albumin 4.2 Globulin 2.5 Albumin/Globulin Ratio 1.7 Procalcitonin Immunoas 7.02 H* Urine Color YELLOW Urine Clarity CLEAR Urine pH 6.0 Ur Specific [place] 1.015 Urine Protein TRACE Urine Glucose (UA) NEGATIVE Urine Ketones NEGATIVE Urine Occult Blood NEGATIVE Urine Nitrite NEGATIVE Urine Bilirubin NEGATIVE Urine Urobilinogen 0.2 (NORMAL) Ur Leukocyte Esterase NEGATIVE Urine RBC 0-5 Urine WBC 0-3 Ur Squamous Epith Cells MOD Squamous H Amorphous Sediment Few Urine Bacteria Few Urine Casts 0-2 Granular Casts Urine Culture Comments Nasal Adenovirus (PCR) Nasal B. parapertussis DNA (PCR) Nasal Coronavir 229E PCR Nasal Coronavir HKU1 PCR Nasal Coronavir NL63 PCR Nasal Coronavir OC43 PCR Nasal Enterovir/Rhinovir PCR Nasal Influenza B PCR Nasal Influenza A PCR Nasal Parainfluen 1 PCR Nasal Parainfluen 2 PCR Nasal Parainfluen 3 PCR Nasal Parainfluen 4 PCR Nasal RSV (PCR) Nasal Screen MRSA (PCR) Nasal B.pertussis DNA PCR Nasal C.pneumoniae (PCR) Brayan Human Metapneumo PCR Nasal M.pneumoniae (PCR) Nasal SARS-CoV-2 (PCR) 10/24/24 10/24/24 10/25/24 18:30 21:55 00:00 WBC RBC Hgb Hct MCV MCH MCHC RDW Plt Count MPV Neut # (Auto) Lymph # (Auto) [place] # (Auto) Eos # (Auto) Baso # (Auto) Absolute Nucleated RBC Nucleated RBC % Sodium Potassium Chloride Carbon Dioxide Anion Gap BUN Creatinine Estimated GFR (MDRD) Glucose POC Whole Bld Glucose 116 Lactic Acid Calcium Total Bilirubin AST ALT Alkaline Phosphatase Total Protein Albumin Globulin Albumin/Globulin Ratio Procalcitonin Immunoas Urine Color Urine Clarity Urine pH Ur Specific [place] Urine Protein Urine Glucose (UA) Urine Ketones Urine Occult Blood Urine Nitrite Urine Bilirubin Urine Urobilinogen Ur Leukocyte Esterase Urine RBC Urine WBC Ur Squamous Epith Cells Amorphous Sediment Urine Bacteria Urine Casts 0-2 Hyaline Casts Urine Culture Comments NOT INDICATED Nasal Adenovirus (PCR) NOT DETECTED Nasal B. parapertussis DNA (PCR) NOT DETECTED Nasal Coronavir 229E PCR NOT DETECTED Nasal Coronavir HKU1 PCR NOT DETECTED Nasal Coronavir NL63 PCR NOT DETECTED Nasal Coronavir OC43 PCR NOT DETECTED Nasal Enterovir/Rhinovir PCR NOT DETECTED Nasal Influenza B PCR NOT DETECTED Nasal Influenza A PCR NOT DETECTED Nasal Parainfluen 1 PCR NOT DETECTED Nasal Parainfluen 2 PCR NOT DETECTED Nasal Parainfluen 3 PCR NOT DETECTED Nasal Parainfluen 4 PCR NOT DETECTED Nasal RSV (PCR) NOT DETECTED Nasal Screen MRSA (PCR) NEGATIVE Nasal B.pertussis DNA PCR NOT DETECTED Nasal C.pneumoniae (PCR) NOT DETECTED Brayan Human Metapneumo PCR NOT DETECTED Nasal M.pneumoniae (PCR) NOT DETECTED Nasal SARS-CoV-2 (PCR) NOT DETECTED 10/25/24 04:52 WBC 7.5 RBC 3.46 L Hgb 10.7 L Hct 33.6 L MCV 97.1 H MCH 30.9 MCHC 31.8 L RDW 13.3 Plt Count 134 MPV 9.1 Neut # (Auto) 5.0 Lymph # (Auto) 1.[address] [place] # (Auto) 1.1 H Eos # (Auto) 0.2 Baso # (Auto) 0.1 Absolute Nucleated RBC 0.00 Nucleated RBC % 0.0 Sodium 135 Potassium 3.8 Chloride 106 Carbon Dioxide 22 Anion Gap 7.0 BUN 38 H Creatinine 1.6 H Estimated GFR (MDRD) 41 L Glucose 104 POC Whole Bld Glucose Lactic Acid Calcium 8.5 Total Bilirubin AST ALT Alkaline Phosphatase Total Protein Albumin Globulin Albumin/Globulin Ratio Procalcitonin Immunoas Urine Color Urine Clarity Urine pH Ur Specific [place] Urine Protein Urine Glucose (UA) Urine Ketones Urine Occult Blood Urine Nitrite Urine Bilirubin Urine Urobilinogen Ur Leukocyte Esterase Urine RBC Urine WBC Ur Squamous Epith Cells Amorphous Sediment Urine Bacteria Urine Casts Urine Culture Comments Nasal Adenovirus (PCR) Nasal B. parapertussis DNA (PCR) Nasal Coronavir 229E PCR Nasal Coronavir HKU1 PCR Nasal Coronavir NL63 PCR Nasal Coronavir OC43 PCR Nasal Enterovir/Rhinovir PCR Nasal Influenza B PCR Nasal Influenza A PCR Nasal Parainfluen 1 PCR Nasal Parainfluen 2 PCR Nasal Parainfluen 3 PCR Nasal Parainfluen 4 PCR Nasal RSV (PCR) Nasal Screen MRSA (PCR) Nasal B.pertussis DNA PCR Nasal C.pneumoniae (PCR) Brayan Human Metapneumo PCR Nasal M.pneumoniae (PCR) Nasal SARS-CoV-2 (PCR) PD Medical Decision Making ED course Complexity details: reviewed old records and reviewed results ED course: Patient 84-year-old male with past medical history of hypertension, history of hyperlipidemia currently on a GLP-1 within the last 3 months presents to the emergency department with chills and rigors that started this morning around 4 AM he felt he could not get warm enough and had persistent chills slightly down to this afternoon and had generalized weakness. He notes he is feeling better now but continues to feel weak. Vitals are stable on arrival. Physical exam shows normal cardiac and lung sounds, no lower leg swelling. CXR shows no acute cardiopulmonary findings, CBC and urine are unremarkable, however significantly elevated procalcitonin here in the ED. Updated patient on findings and discussed with hospitalist given concerning rigors and positive procalciitonin patient will be admitted to obs for concerns of sepsis, and pending blood cultures. Patient and hospitalist WOLF Hammond are agreeable with this plan. Discharge Plan Discharge Patient Disposition: 66 [facility] DC/Xfer Clinical Impression: SIRS (systemic inflammatory response syndrome) Interventions: ED Admission Assessment Last Done: 10/24/24 21:27 Vitals documented within 30 minutes of discharge?: Yes
[2024-10-24 19:06] LABS: GLUCOSE, URINE (UA) NEGATIVE (NEGATIVE); KETONES,URINE (UA) NEGATIVE (NEGATIVE); OCCULT BLOOD,URINE NEGATIVE (NEGATIVE)
[2024-10-24 19:24] LABS: AMORPHOUS SEDIMENT,UR Few /LPF; SQUAMOUS EPITHELIAL CELL,UR MOD Squamous (<= Few)
[2024-10-24 19:26] LABS: B. PARAPERTUSSIS- RESP PCR PAN NOT DETECTED; B. PERTUSSIS- RESP PCR PANEL NOT DETECTED; C. PNEUMONIAE- RESP PCR PANEL NOT DETECTED; CORONAVIRUS 229E-RESP PCR NOT DETECTED; CORONAVIRUS HKU1-RESP PCR NOT DETECTED; CORONAVIRUS NL63-RESP PCR NOT DETECTED; CORONAVIRUS OC43-RESP PCR NOT DETECTED; HUMAN METAPNEUMOVIRUS NOT DETECTED; INFLUENZA A- RESP PCR PANEL NOT DETECTED; INFLUENZA B - RESP PCR PANEL NOT DETECTED; M. PNEUMONIAE- RESP PCR PANEL NOT DETECTED; PARAINFLUENZA VIRUS 1 NOT DETECTED; PARAINFLUENZA VIRUS 2 NOT DETECTED; PARAINFLUENZA VIRUS 4 NOT DETECTED; RHINOVIRUS/ENTEROVIRUS NOT DETECTED; RSV- RESP PCR PANEL NOT DETECTED; SARS-CoV-2 -RESP PCR PANEL NOT DETECTED
--- NOTE | 2024-10-24 20:01 | XRAY Report ---
PROCEDURE: XR Chest 1V INDICATIONS: rales TECHNIQUE: One view of the chest was acquired. COMPARISON: 02/23/2020 FINDINGS: Surgical changes and devices: None. Lungs and pleura: Diffuse interstitial prominence. Suggestion of minimal vascular congestion and perihilar airway thickening. No dense consolidation. No pneumothorax or pleural effusion. Mediastinum: Mediastinal contours appear normal. Heart size is mildly enlarged. Bones and chest wall: No suspicious bony lesions. Overlying soft tissues appear unremarkable. IMPRESSION: Mild cardiomegaly with findings suggestive of pulmonary edema/CHF although concurrent infectious/inflammatory process not excluded if clinically appropriate. No dense consolidation. Reviewed by: Neal Lopez MD on 10/24/2024 8:00 PM PDT Approved by: Neal Lopez MD on 10/24/2024 8:00 PM PDT Station ID: [id number]
[2024-10-24] MEDS: CEFEPIME 1 GM VIAL IVP STA (20:38)
[2024-10-24] MEDS ORDERED: VANCOMYCIN 1 GM VIAL ONE (20:41)
[2024-10-24] MEDS: VANCOMYCIN INJ 2 GM in SODIUM CHLORIDE 0.9% 500 ML IV STA (20:47)
--- NOTE | 2024-10-24 21:10 | HISTORY & PHYSICAL EXAMINATION ---
Chief Complaint Chief Complaint Chief Complaint: rigors History of Present Illness Admitted From Admitted From:: home History Obtained From Records Reviewed: none avaiable. History obtained from: patient History of Present Illness HPI Comment/Other: 84-year-old gentleman who presents to the emergency department complaining of fatigue and rigors x 1 day. He has been coughing for about a month and has had some fatigue over that month but nothing like he started to have this morning. He woke up at 4 AM with shaking rigors. These have been occurring intermittently through the day associated with severe crushing fatigue and some shortness of breath today. He has not been having any urinary difficulties although he does have a history of BPH which is treated with finasteride and tamsulosin. 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 Except for this cough he has been feeling well in recent days. Lives with his ; functions independently in the community. Lives in [place]. [place]. His CODE STATUS is full code. His would make his medical decisions where he unable to do so. Meds/Allgy Home Medications Ambulatory Orders Medication Instructions Recorded Confirmed atorvastatin 20 mg tablet (Lipitor) 40 mg PO DAILY 10/24/24 desvenlafaxine succinate 50 mg 150 mg PO DAILY 4 10/24/24 tablet,extended release 24 hr (Pristiq) metoprolol succinate 50 mg 50 mg PO DAILY 07/13/1309/12 tablet,extended release 24 hr aspirin 81 mg tablet,delayed 81 mg PO AC 12/03/1309/12 release (Adult Low Dose Aspirin) losartan 50 mg tablet 50 mg 12/02/17 indomethacin 25 mg capsule 25 mg PO BIDWM ##10 0 10/24/24 Allergies Allergies Allergy/AdvReac Type Severity Reaction Status Date / Time Sulfa (Sulfonamide Allergy Severe Hives Verified 10/24/24 17:24 Antibiotics) lisinopril Allergy Mild Cough Verified 10/24/24 17:24 [facility] Active Problems All Active Problems (Updated 10/24/24 @ 20:52 by WOLF Vinson) Sleep apnea (Acute) Hypertension (Acute) Obesity (Acute) CAD (coronary artery disease) (Acute) SIRS (systemic inflammatory response syndrome) (Acute) Social History Social History Smoking Status: Never smoker Do you vape?: No Living Condition: With spouse/s.o. Relationship: Do you feel safe in your home environment?: Yes Suffered physical, verbal, emotional, or financial abuse?: No History of Abuse: No ETOH Use: Frequency: Daily Number of Amount/day: 2 POLST Patient has POLST: No Review of Systems Status of ROS: 10 or more systems reviewed and unremarkable except as noted in history and below Constitutional Reports: Chills, Malaise, Weakness and Weight loss (Intentional); Denies: Diaphoresis Eyes Denies: Change in vision Ears, nose, mouth, and throat Denies: Ear pain, Nasal discharge or Throat pain Cardiovascular Reports: lightheadedness, shortness of breath with exertion and Decreased exercise tolerance; Denies: Irregular heart rate, chest pain, palpitations, edema or swelling of feet/ankles Respiratory Reports: Shortness of breath; Denies: Sputum production, Wheezing or Pleuritic pain Gastrointestinal Denies: Abdominal pain, Abdominal distention, Nausea or Vomiting Genitourinary Denies: Painful urination, Incontinence, Urinary frequency or Urinary urgency Musculoskeletal Denies: Back pain Integumentary/Breast Denies: Rash Neurological Reports: General weakness Allergic/Immunologic Denies: Wheezing Prior Level of Functionality: independent Exam Exam Vital Signs: Vital Signs x48h Temp Pulse Pulse Resp BP BP Pulse Ox 10/24/24 21:26 36.7 C 98 16 159/76 H 97 10/24/24 21:06 37.2 C 93 18 114/66 97 10/24/24 19:02 69 19 114/66 97 10/24/24 18:40 91 18 96 10/24/24 18:24 20 10/24/24 17:26 37.2 C 99 22 114/68 93 Constitutional normal general appearance active rigors HENMT normocephalic, head/scalp atraumatic, external nose normal, oral mucous membranes normal and dentition normal Eyes conjunctivae normal Neck/C-Spine visual inspection normal and no meningeal signs Lymph no lymphadenopathy noted Chest inspection of chest normal Respiratory breath sounds equal bilaterally, normal respiratory effort, clear to auscultation bilaterally, no wheezes, no rales and no use of accessory muscles Cardiovascular normal heart rate noted, no murmur, peripheral pulses 2+ throughout and no additional abnormal heart sounds Gastrointestinal abdomen normal to inspection and abdomen soft to palpation obese Genitourinary no CVA tenderness Back/Pelvis spine normal to inspection Extremities normal to inspection, normal to palpation and no tenderness Neurology no movement abnormality noted, gait normal, speech normal, coordination normal and GCS 15 Psychiatry mental status grossly normal, oriented x3, thought process normal, cooperative and affect normal Skin skin color normal Conclusion/Plan Problem List (1) SIRS (systemic inflammatory response syndrome): Plan: Presents with rigors intermittently since this AM, fatigue, that is worse today, and cough for about a month. CXR was negative. He has also been short of breath today. Resp panel negative. Discussed with Yadi Cortes PA-C in the ED and decision was made to admit this patient overnight for observation. Blood cultures sent from the ED. I have requested a MRSA nasal swab. I am starting the patient on cefepime and vancomycin and will de escalate as indicated. Given that he has been coughing for about a month, and has no other source, I will request a CT of the chest. His procalcitonin is elevated at 7.2 and his WBC is elevated at 11.2. I have ordered repeat CBC for the AM. He has no murmur on exam, but does give a hx of PFO with closure. I will consider echocardiogram. (2) CAD (coronary artery disease): Plan: Takes ASA 81mg daily. gives a history of carotid and coronary artery stenting. >10 yrs since last stents placed. Also hx PFO closure. has had a flutter in the past and reportedly was cardioverted. he take metoprolol daily. I have continued this medication. (3) Sleep apnea: Plan: He is a faithful CPAP wearer, and requests that he be given therapy this evening, did not bring his machine to the hospital. I have consulted RT for CPAP overnight. (4) Hypertension: Plan: Metoprolol and Cozaar as outpatient. ordered with hold parameters. (5) Obesity: Plan: 40# weight loss over about one year, currently taking Zepbound 15mg weekly. was on semaglutide before. I have spent 80 minutes in the care of this patient today. This includes time [id number], review and ordering of diagnostic imaging and laboratory studies and consultation with other providers. Lab Results Lab results reviewed: Yes 10/24/24 18:08 10/24/24 18:08 Diagnostic Imaging Results Diagnostic Imaging Results Comments: chest XR neg Core Measures Anticipated LOS I expect patient to be DC'd or transferred within 96 hours.: Yes DVT/VTE - Prophylaxis VTE/DVT Device ordered at admit?: Yes VTE/DVT Prophylaxis med ordered at admit?: Yes
[2024-10-24] MEDS ORDERED: ONDANSETRON ODT 4 MG TABLET TL PRN (21:25)
[2024-10-24] MEDS ORDERED: SODIUM CHLORIDE FLUSH 0.9% 10 ML SYRINGE IVP PRN (21:25)
[2024-10-25] MEDS: SODIUM CHLORIDE FLUSH 0.9% 10 ML SYRINGE IVP SCH (00:20)
[2024-10-25] MEDS: GABAPENTIN 300 MG CAPSULE PO SCH (00:20)
[2024-10-25 05:19] LABS: HCT - HEMATOCRIT 33.6 % (42.0-52.0); HGB - HEMOGLOBIN 10.7 g/dL (14.0-18.0); MEAN PLATELET VOLUME 9.1 fL (7.4-11.4); NRBC ABSOLUTE COUNT (AUTO) 0.00 x10^3/uL; NUCLEATED RED BLOOD CELLS AUTO 0.0 /100WBC; PLT - PLATELET COUNT 134 10^3/uL (130-450); RED CELL DISTRIBUTION WIDTH 13.3 % (12.0-15.0)
[2024-10-25 05:35] LABS: BUN - BLOOD UREA NITROGEN 38.0 mg/dL (6-20); CARBON DIOXIDE - CO2 22.0 mmol/L (21-32); CREATININE 1.6 mg/dL (0.6-1.3); GFR - MDRD 41.0 (>89)
[2024-10-25] MEDS: ASPIRIN EC 81 MG TABLET PO SCH (06:33)
[2024-10-25] MEDS: ENOXAPARIN 40 MG/0.4 ML SYRINGE SUBQ SCH (08:46)
[2024-10-25] MEDS: ATORVASTATIN 40 MG TABLET PO SCH (08:47)
[2024-10-25] MEDS: METOPROLOL SUCCINATE 50 MG TABLET PO SCH (08:47)
[2024-10-25] MEDS: AZITHROMYCIN 250 MG TABLET PO SCH (08:47)
[2024-10-25] MEDS: DESVENLAFAXINE SUCCINATE 100 MG PO SCH (08:47)
[2024-10-25] MEDS: LOSARTAN 50 MG TABLET PO SCH (08:47)
[2024-10-25] MEDS: CEFEPIME 1 GM VIAL IVP SCH (08:58)
[2024-10-25] MEDS ORDERED: cefTRIAXone 1 GM VIAL IVP SCH (09:00)
--- NOTE | 2024-10-25 10:01 | PROVIDER PROGRESS NOTE ---
Subjective Subjective Subjective: Patient is a 84-year-old man with a history of BPH, CAD s/p stents who presented for rigors and chills. The only other symptom the patient had was a chronic cough which has worsened in the last month. He had initially attributed it to allergy, as well as a postnasal drip. He does state that he has some urinary hesitancy, and feelings of incomplete emptying, but these are normal for him. He also is taking a GLP-1, and as such has chronic diarrhea. Current Medications Current Medications Current Medications: Current Medications Generic Name Dose Route Start Last Admin Trade Name Freq PRN Reason Stop Dose Admin Acetaminophen 650 mg 10/24/24 21:25 Acetaminophen 325 Mg Tablet PO Q4HR PRN Pain 1 to 4, or Fever Aspirin 81 mg 10/25/24 07:00 10/25/24 06:33 Aspirin Ec 81 Mg Tablet PO 81 mg AC NARCISO Administration Atorvastatin Calcium 40 mg 10/25/24 09:00 10/25/24 08:47 Atorvastatin 40 Mg Tablet PO 40 mg DAILY NARCISO Administration Azithromycin 500 mg 10/25/24 09:00 10/25/24 08:47 Azithromycin 250 Mg Tablet PO 500 mg DAILY NARCISO Administration Ceftriaxone Sodium 2 gm 10/25/24 09:00 10/25/24 08:47 Ceftriaxone 2 Gm Vial IVP 2 gm DAILY NARCISO Administration Enoxaparin Sodium 40 mg 10/25/24 09:00 10/25/24 08:46 Enoxaparin 40 Mg/0.4 Ml Syringe SUBQ 40 mg DAILY NARCISO Administration Gabapentin 300 mg 10/24/24 23:55 10/25/24 00:20 Gabapentin 300 Mg Capsule PO 300 mg QPM NARCISO Administration Loperamide HCl 2 mg 10/25/24 09:12 Loperamide 2 Mg Capsule PO QID PRN Diarrhea Losartan Potassium 50 mg 10/25/24 09:00 10/25/24 08:47 Losartan 50 Mg Tablet PO 50 mg DAILY NARCISO Administration Metoprolol Succinate 50 mg 10/25/24 09:00 10/25/24 08:47 Metoprolol Succinate 50 Mg Tablet PO 50 mg DAILY NARCISO Administration Ondansetron HCl 4 mg 10/24/24 21:25 Ondansetron Odt 4 Mg Tablet TL Q6HR PRN Nausea / Vomiting Desvenlafaxine 1 each 10/25/24 09:00 10/25/24 08:47 Succinate [Pristiq] PO Not Given 100 Mg Tablet DAILY NARCISO Extended Release 24 Hr Sodium Chloride 10 ml 10/24/24 21:25 Sodium Chloride Flush 0.9% 10 Ml Syringe IVP PRN PRN NEEDED PER PROVIDER ORDERS Sodium Chloride 10 ml 10/25/24 01:00 10/25/24 08:47 Sodium Chloride Flush 0.9% 10 Ml Syringe IVP 10 ml 0100,0900,1700 NARCISO Administration Sterile Water 20 ml 10/25/24 09:00 10/25/24 08:47 Water For Injection,Sterile 10 Ml Vial MC 20 ml DAILY NARCISO Administration Objective Vital Signs/Intake & Output Reviewed Vital Signs: Yes Vital Signs: Vital Signs x48h Temp Pulse Resp BP Pulse Ox 10/25/24 08:34 97.9 F 80 16 116/66 96 10/25/24 04:39 98.1 F 85 20 121/59 L 96 Intake & Output: Intake & Output 10/22/24 10/23/24 10/24/24 10/25/24 23:59 23:59 23:59 23:59 Intake Total 1700 / 1700 720 / 720 Balance 1700 / 1700 720 / 720 Weight (kg) 113.398 kg Objective General Appearance: positive No acute distress and Alert; negative Anxious Eyes Bilateral: positive Normal inspection, PERRL and EOMI ENT: positive ENT inspection nml, Pharynx nml and No signs of dehydration Neck: positive Nml inspection, Thyroid nml and No JVD Respiratory: positive Chest non-tender, No respiratory distress and Breath sounds nml; negative Wheezes, Rales or Rhonchi Cardiovascular: positive Regular rate & rhythm, No murmur and No gallop; negative Tachycardia or Systolic murmur Abdomen: positive Non-tender, No organomegaly and No distention; negative Guarding or Splenomegaly Back: positive Nml inspection; negative CVA tenderness (R) or CVA tenderness (L) Skin: positive Color nml, No rash, Warm and Dry Extremities: positive Non-tender, Full ROM, Nml appearance and No pedal edema Neurologic/Psychiatric: positive Oriented x3, Motor nml and Mood/affect nml Lab Results 10/25/24 04:52 10/25/24 04:52 Other Labs: Lab Results x24hrs 10/25/24 10/25/24 10/24/24 Range/Units 04:52 00:00 21:55 WBC 7.5 (4.8-10.8) x10^3/uL RBC 3.46 L (4.70-6.10) 10^6/uL Hgb 10.7 L (14.0-18.0) g/dL Hct 33.6 L (42.0-52.0) % MCV 97.1 H (80.0-94.0) fL MCH 30.9 (27.0-31.0) pg MCHC 31.8 L (32.0-36.0) g/dL RDW 13.3 (12.0-15.0) % Plt Count 134 (130-450) 10^3/uL MPV 9.1 (7.4-11.4) fL Neut # (Auto) 5.0 (1.5-6.6) 10^3/uL Lymph # (Auto) 1.1 L (1.5-3.5) 10^3/uL Placer # (Auto) 1.1 H (0.0-1.0) 10^3/uL Eos # (Auto) 0.2 (0.0-0.7) 10^3/uL Baso # (Auto) 0.1 (0.0-0.1) 10^3/uL Absolute Nucleated RBC 0.00 x10^3/uL Nucleated RBC % 0.0 /100WBC Sodium 135 (135-145) mmol/L Potassium 3.8 (3.5-4.5) mmol/L Chloride 106 (101-111) mmol/L Carbon Dioxide 22 (21-32) mmol/L Anion Gap 7.0 (6-13) BUN 38 H (6-20) mg/dL Creatinine 1.6 H (0.6-1.3) mg/dL Estimated GFR (MDRD) 41 L (>89) Glucose 104 (74-104) mg/dL POC Whole Bld Glucose 116 (70-100) mg/dL Lactic Acid (0.5-2.2) mmol/L Calcium 8.5 (8.5-10.3) mg/dL Total Bilirubin (0.2-1.0) mg/dL AST (10-42) IU/L ALT (10-60) IU/L Alkaline Phosphatase (42-121) IU/L Total Protein (6.4-8.9) g/dL Albumin (3.2-5.5) g/dL Globulin (2.1-4.2) g/dL Albumin/Globulin Ratio (1.0-2.2) Procalcitonin Immunoas (<0.5) ng/mL Urine Color Urine Clarity (CLEAR) Urine pH (5.0-7.5) PH Ur Specific [place] (1.002-1.030) Urine Protein (NEGATIVE) mg/dL Urine Glucose (UA) (NEGATIVE) mg/dL Urine Ketones (NEGATIVE) mg/dL Urine Occult Blood (NEGATIVE) Urine Nitrite (NEGATIVE) Urine Bilirubin (NEGATIVE) Urine Urobilinogen (NORMAL) E.U./dL Ur Leukocyte Esterase (NEGATIVE) Urine RBC (0-5) /HPF Urine WBC (0-3) /HPF Ur Squamous Epith Cells (<= Few) Amorphous Sediment /LPF Urine Bacteria (None Seen) /HPF Urine Casts /LPF Urine Culture Comments Nasal Adenovirus (PCR) Nasal B. parapertussis DNA (PCR) Nasal Coronavir 229E PCR Nasal Coronavir HKU1 PCR Nasal Coronavir NL63 PCR Nasal Coronavir OC43 PCR Nasal Enterovir/Rhinovir PCR Nasal Influenza B PCR Nasal Influenza A PCR Nasal Parainfluen 1 PCR Nasal Parainfluen 2 PCR Nasal Parainfluen 3 PCR Nasal Parainfluen 4 PCR Nasal RSV (PCR) Nasal Screen MRSA (PCR) NEGATIVE (NEGATIVE) Nasal B.pertussis DNA PCR Nasal C.pneumoniae (PCR) Brayan Human Metapneumo PCR Nasal M.pneumoniae (PCR) Nasal SARS-CoV-2 (PCR) 10/24/24 10/24/24 10/24/24 Range/Units 18:30 18:30 18:11 WBC (4.8-10.8) x10^3/uL RBC (4.70-6.10) 10^6/uL Hgb (14.0-18.0) g/dL Hct (42.0-52.0) % MCV (80.0-94.0) fL MCH (27.0-31.0) pg MCHC (32.0-36.0) g/dL RDW (12.0-15.0) % Plt Count (130-450) 10^3/uL MPV (7.4-11.4) fL Neut # (Auto) (1.5-6.6) 10^3/uL Lymph # (Auto) (1.5-3.5) 10^3/uL Placer # (Auto) (0.0-1.0) 10^3/uL Eos # (Auto) (0.0-0.7) 10^3/uL Baso # (Auto) (0.0-0.1) 10^3/uL Absolute Nucleated RBC x10^3/uL Nucleated RBC % /100WBC Sodium (135-145) mmol/L Potassium (3.5-4.5) mmol/L Chloride (101-111) mmol/L Carbon Dioxide (21-32) mmol/L Anion Gap (6-13) BUN (6-20) mg/dL Creatinine (0.6-1.3) mg/dL Estimated GFR (MDRD) (>89) Glucose (74-104) mg/dL POC Whole Bld Glucose (70-100) mg/dL Lactic Acid 1.1 (0.5-2.2) mmol/L Calcium (8.5-10.3) mg/dL Total Bilirubin (0.2-1.0) mg/dL AST (10-42) IU/L ALT (10-60) IU/L Alkaline Phosphatase (42-121) IU/L Total Protein (6.4-8.9) g/dL Albumin (3.2-5.5) g/dL Globulin (2.1-4.2) g/dL Albumin/Globulin Ratio (1.0-2.2) Procalcitonin Immunoas (<0.5) ng/mL Urine Color YELLOW Urine Clarity CLEAR (CLEAR) Urine pH 6.0 (5.0-7.5) PH Ur Specific [place] 1.015 (1.002-1.030) Urine Protein TRACE (NEGATIVE) mg/dL Urine Glucose (UA) NEGATIVE (NEGATIVE) mg/dL Urine Ketones NEGATIVE (NEGATIVE) mg/dL Urine Occult Blood NEGATIVE (NEGATIVE) Urine Nitrite NEGATIVE (NEGATIVE) Urine Bilirubin NEGATIVE (NEGATIVE) Urine Urobilinogen 0.2 (NORMAL) (NORMAL) E.U./dL Ur Leukocyte Esterase NEGATIVE (NEGATIVE) Urine RBC 0-5 (0-5) /HPF Urine WBC 0-3 (0-3) /HPF Ur Squamous Epith Cells MOD Squamous H (<= Few) Amorphous Sediment Few /LPF Urine Bacteria Few (None Seen) /HPF Urine Casts 0-2 Hyaline Casts 0-2 Granular Casts /LPF Urine Culture Comments NOT INDICATED Nasal Adenovirus (PCR) NOT DETECTED Nasal B. parapertussis DNA (PCR) NOT DETECTED Nasal Coronavir 229E PCR NOT DETECTED Nasal Coronavir HKU1 PCR NOT DETECTED Nasal Coronavir NL63 PCR NOT DETECTED Nasal Coronavir OC43 PCR NOT DETECTED Nasal Enterovir/Rhinovir PCR NOT DETECTED Nasal Influenza B PCR NOT DETECTED Nasal Influenza A PCR NOT DETECTED Nasal Parainfluen 1 PCR NOT DETECTED Nasal Parainfluen 2 PCR NOT DETECTED Nasal Parainfluen 3 PCR NOT DETECTED Nasal Parainfluen 4 PCR NOT DETECTED Nasal RSV (PCR) NOT DETECTED Nasal Screen MRSA (PCR) (NEGATIVE) Nasal B.pertussis DNA PCR NOT DETECTED Nasal C.pneumoniae (PCR) NOT DETECTED Brayan Human Metapneumo PCR NOT DETECTED Nasal M.pneumoniae (PCR) NOT DETECTED Nasal SARS-CoV-2 (PCR) NOT DETECTED 10/24/24 Range/Units 18:08 WBC 11.2 H (4.8-10.8) x10^3/uL RBC 3.96 L (4.70-6.10) 10^6/uL Hgb 12.6 L (14.0-18.0) g/dL Hct 37.9 L (42.0-52.0) % MCV 95.7 H (80.0-94.0) fL MCH 31.8 H (27.0-31.0) pg MCHC 33.2 (32.0-36.0) g/dL RDW 13.1 (12.0-15.0) % Plt Count 157 (130-450) 10^3/uL MPV 8.5 (7.4-11.4) fL Neut # (Auto) 9.1 H (1.5-6.6) 10^3/uL Lymph # (Auto) 0.7 L (1.5-3.5) 10^3/uL Placer # (Auto) 1.2 H (0.0-1.0) 10^3/uL Eos # (Auto) 0.0 (0.0-0.7) 10^3/uL Baso # (Auto) 0.1 (0.0-0.1) 10^3/uL Absolute Nucleated RBC 0.00 x10^3/uL Nucleated RBC % 0.0 /100WBC Sodium 132 L (135-145) mmol/L Potassium 4.2 (3.5-4.5) mmol/L Chloride 102 (101-111) mmol/L Carbon Dioxide 24 (21-32) mmol/L Anion Gap 6.0 (6-13) BUN 39 H (6-20) mg/dL Creatinine 1.8 H (0.6-1.3) mg/dL Estimated GFR (MDRD) 36 L (>89) Glucose 114 H (74-104) mg/dL POC Whole Bld Glucose (70-100) mg/dL Lactic Acid (0.5-2.2) mmol/L Calcium 9.2 (8.5-10.3) mg/dL Total Bilirubin 0.8 (0.2-1.0) mg/dL AST 25 (10-42) IU/L ALT 29 (10-60) IU/L Alkaline Phosphatase 50 (42-121) IU/L Total Protein 6.7 (6.4-8.9) g/dL Albumin 4.2 (3.2-5.5) g/dL Globulin 2.5 (2.1-4.2) g/dL Albumin/Globulin Ratio 1.7 (1.0-2.2) Procalcitonin Immunoas 7.02 H* (<0.5) ng/mL Urine Color Urine Clarity (CLEAR) Urine pH (5.0-7.5) PH Ur Specific [place] (1.002-1.030) Urine Protein (NEGATIVE) mg/dL Urine Glucose (UA) (NEGATIVE) mg/dL Urine Ketones (NEGATIVE) mg/dL Urine Occult Blood (NEGATIVE) Urine Nitrite (NEGATIVE) Urine Bilirubin (NEGATIVE) Urine Urobilinogen (NORMAL) E.U./dL Ur Leukocyte Esterase (NEGATIVE) Urine RBC (0-5) /HPF Urine WBC (0-3) /HPF Ur Squamous Epith Cells (<= Few) Amorphous Sediment /LPF Urine Bacteria (None Seen) /HPF Urine Casts /LPF Urine Culture Comments Nasal Adenovirus (PCR) Nasal B. parapertussis DNA (PCR) Nasal Coronavir 229E PCR Nasal Coronavir HKU1 PCR Nasal Coronavir NL63 PCR Nasal Coronavir OC43 PCR Nasal Enterovir/Rhinovir PCR Nasal Influenza B PCR Nasal Influenza A PCR Nasal Parainfluen 1 PCR Nasal Parainfluen 2 PCR Nasal Parainfluen 3 PCR Nasal Parainfluen 4 PCR Nasal RSV (PCR) Nasal Screen MRSA (PCR) (NEGATIVE) Nasal B.pertussis DNA PCR Nasal C.pneumoniae (PCR) Brayan Human Metapneumo PCR Nasal M.pneumoniae (PCR) Nasal SARS-CoV-2 (PCR) Diagnostic Imaging Diagnostic Imaging Results: positive Final report reviewed Assessment/Plan Problem List (1) Gram-negative bacteremia: Impression: Patient presented with rigors. The only other symptoms he had was a cough, which has been chronic for the last month as well as a postnasal drip. He has a long history of BPH with urinary hesitancy, incomplete feelings of emptying. Leukocytosis has resolved. Procalcitonin is elevated. Blood cultures 2/2 are showing E. coli. Susceptibilities are pending. Continue IV Rocephin. Today is day 2 of antibiotics. Patient will likely need 7-day course of IV antibiotics. Continue azithromycin for 3-day course for possible atypical coverage in case of pneumonia. If patient does not improve clinically, will likely need to repeat blood cultures at 48 hours prior to PICC line placement for this. CT abdomen/pelvis/chest is ordered to assess for possible source for this infection. Of note, UA was negative. 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 This was repaired. His last echo was completed about 6 months ago. Will request records for this. Continue home medications including aspirin, metoprolol, losartan. Qualifiers: Associated angina: without angina Coronary Disease-Associated Artery/Lesion type: unspecified vessel or lesion type [place] vs. transplanted heart: [place] heart Qualified Code(s): I25.10 - Atherosclerotic heart disease of [place] coronary artery without angina pectoris (3) Sleep apnea: Impression: is bringing patient's home CPAP. Qualifiers: Sleep apnea type: unspecified type Qualified Code(s): G47.30 - Sleep apnea, unspecified (4) Hypertension: Impression: Continue antihypertensives from home, losartan and metoprolol. Qualifiers: Hypertension type: unspecified Qualified Code(s): I10 - Essential (primary) hypertension (5) Obesity: Impression: Patient is on a GLP-1 in the outpatient setting. Has resulted in chronic diarrhea. Takes Imodium as needed at home. Continued. Qualifiers: Obesity classification: unspecified obesity classification Obesity type: unspecified obesity type Serious obesity comorbidity presence: without serious comorbidity Qualified Code(s): E66.9 - Obesity, unspecified (6) BPH (benign prostatic hyperplasia): Impression: Continue home medications including tamsulosin, tadalafil, finasteride. Qualifiers: Lower urinary tract symptom presence: symptoms absent Qualified Code(s): N40.0 - Benign prostatic hyperplasia without lower urinary tract symptoms
[2024-10-25] MEDS: FINASTERIDE 5 MG TABLET PO SCH (10:09)
[2024-10-25] MEDS: LOPERAMIDE 2 MG CAPSULE PO PRN (10:09)
--- NOTE | 2024-10-25 12:31 | CT Report ---
PROCEDURE: CT Chest W INDICATIONS: rigors, cough CONTRAST: IV contrast OMNI 300 100ML TECHNIQUE: After the administration of intravenous contrast, a CT scan of the chest was performed. Images were recorded and evaluated at appropriate window settings. Reformats: axial MIP of the chest, coronal and sagittal. For radiation dose reduction, the following was used: automated exposure control, adjustment of mA and/or kV according to patient size. COMPARISON: 10/24/2024 Radiograph FINDINGS: Image quality: Diagnostic Lungs and pleura:No airspace consolidation. No pleural effusions. Mild septal thickening more obvious at the bases. Mild atelectasis. Multiple pulmonary nodules for example in the right lower lobe measuring up to 5 mm. Mediastinum, heart, and esophagus: Borderline cardiomegaly. Coronary calcifications. No enlarged lymph nodes by size criteria. Chest wall and thyroid: Unremarkable Upper abdomen: Separately dictated Bones: Degenerative changes. No aggressive appearing osseous abnormality. IMPRESSION: Mild basal atelectasis and septal thickening, which may represent trace pulmonary edema versus atypical infection. No pleural effusions. Coronary calcifications. Multiple pulmonary nodules are seen under 6 mm. Follow-up imaging is optional if the patient is considered high risk for pulmonary malignancy in one year with chest CT. Other findings above. Reviewed by: Wes Webber MD on 10/25/2024 12:30 PM PDT Approved by: Wes Webber MD on 10/25/2024 12:30 PM PDT Station ID: [id number]
--- NOTE | 2024-10-25 12:36 | CT Report ---
PROCEDURE: CT Abdomen/Pelvis W INDICATIONS: gram negative bacteremia CONTRAST: OMNI 300 100ML TECHNIQUE: After the administration of intravenous contrast, a CT scan of the abdomen and pelvis was performed. Images were recorded and evaluated at appropriate window settings. Reformats: coronal and sagittal. For radiation dose reduction, the following was used: automated exposure control, adjustment of mA and/or kV according to patient size. COMPARISON: None FINDINGS: Image quality: Diagnostic Lower chest: Separately dictated Liver: Mild hepatic steatosis Gallbladder and biliary system: Unremarkable, nondilated Pancreas: No ductal dilation. Mild parenchymal atrophy. Spleen: Nonenlarged Adrenals: No discrete nodules Kidneys: No solid renal mass. No hydronephrosis. Vessels and lymph nodes: No abdominal aortic aneurysm. Main portal vein is patent. Mild to moderate atherosclerotic calcifications of the aorta and its branches. No enlarged lymph nodes by size criteria. Bowel and peritoneum: No small bowel obstruction. No drainable abscess or ascites. Body wall: There is a tiny umbilical hernia containing portion of the bowel loop. Pelvis: Small fat-containing hernias. Bones: No aggressive appearing osseous abnormality. There are degenerative changes. IMPRESSION: No acute abdominopelvic abnormality to explain bacteremia. Mild hepatic steatosis is suspected. Small umbilical Gould's hernia. No significant inflammation or bowel obstruction currently. Other findings above, likely nonacute/incidental. Reviewed by: Wes Webber MD on 10/25/2024 12:35 PM PDT Approved by: Wes Webber MD on 10/25/2024 12:35 PM PDT Station ID: [id number]
--- NOTE | 2024-10-25 12:43 | PHARMACY PROGRESS NOTE ---
Best Possible Medication History Admit Date and Time: 10/24/24 [id number] Home Medications Medication Instructions Recorded Confirmed Type metoprolol succinate 50 mg 50 mg PO DAILY 07/13/1310/12 History tablet,extended release 24 hr aspirin 81 mg tablet,delayed 81 mg PO DAILY 12/03/13 0 10/25/24 History release (Adult Low Dose Aspirin) losartan 50 mg tablet See Rx Instructions PO DAILY 12/02/17 10/25/24 History coQ10 (ubiquinol) 100 mg capsule 100 mg PO DAILY 10/2510/25/24 History desvenlafaxine succinate 100 mg 100 mg PO DAILY 10/25/24 History tablet,extended release 24 hr finasteride 5 mg tablet 5 mg PO HS 10/25/24 10/25/24 History gabapentin 300 mg capsule 300 mg PO HS 10/25/24 History icosapent ethyl 1 gram capsule 2 g PO BID 10/25/2410/12 History omeprazole 20 mg capsule,delayed 20 mg PO DAILY 10/25/24 History release rosuvastatin 40 mg tablet 40 mg PO HS 10/25/24 5 History tadalafil 20 mg tablet (Cialis) 20 mg PO DAILY 5 10/25/24 History tamsulosin 0.4 mg capsule 0.8 mg PO DAILY 10/25/2410/12 History tirzepatide (weight loss) 15 15 mg subcut OAW 10/25/24 10/25/24 History mg/0.5 mL subcutaneous pen injector (Zepbound) Processed by: Pharmacy Medications reviewed in ED?: Yes Medication History completed: Yes Patient Interview: Completed Secondary Source(s): Pharmacy records and Insurance records [facility] Statement: As the person ultimately responsible for medication therapy, providers are able to order a medication from an existing home medication list in [facility] via the "Reconcile Routine" prior to Confirmation of that medication by ict support and test engineers. Such practice is discouraged except when the physician, in their clinical judgment, deems that a medical need exists for a medication without regard to previous use.
[2024-10-25] MEDS ORDERED: GABAPENTIN 300 MG CAPSULE PO SCH (21:00)
[2024-10-25] MEDS ORDERED: VANCOMYCIN INJ 1 GM in SODIUM CHLORIDE 0.9% 250 ML IV SCH (21:00)
[2024-10-25] MEDS: TAMSULOSIN 0.4 MG CAPSULE PO SCH (22:18)
[2024-10-26] MEDS: ACETAMINOPHEN 325 MG TABLET PO PRN (00:41)
[2024-10-26] MEDS ORDERED: ACETAMINOPHEN 325 MG TABLET PO PRN (02:26)
[2024-10-26 05:48] LABS: HCT - HEMATOCRIT 33.7 % (42.0-52.0); HGB - HEMOGLOBIN 11.3 g/dL (14.0-18.0); MEAN PLATELET VOLUME 9.0 fL (7.4-11.4); NRBC ABSOLUTE COUNT (AUTO) 0.00 x10^3/uL; NUCLEATED RED BLOOD CELLS AUTO 0.0 /100WBC; PLT - PLATELET COUNT 129 10^3/uL (130-450); RED CELL DISTRIBUTION WIDTH 13.1 % (12.0-15.0)
[2024-10-26 06:05] LABS: BUN - BLOOD UREA NITROGEN 29.0 mg/dL (6-20); CARBON DIOXIDE - CO2 22.0 mmol/L (21-32); CREATININE 1.5 mg/dL (0.6-1.3); GFR - MDRD 45.0 (>89)
[2024-10-26] MEDS: PANTOPRAZOLE 40 MG TABLET PO SCH (06:26)
[2024-10-26] MEDS ORDERED: TADALAFIL 20 MG PO SCH (09:00)
[2024-10-26] MEDS ORDERED: COQ10 100 MG PO SCH (09:00)
[2024-10-26] MEDS ORDERED: DESVENLAFAXINE SUCCINATE 100 MG PO SCH (09:00)
[2024-10-26] MEDS: TADALAFIL 20 MG PO SCH (10:17)
[2024-10-26] MEDS: TADALAFIL 5 MG PO SCH (13:09)
[2024-10-26] MEDS: DESVENLAFAXINE SUCCINATE 100 MG PO SCH (13:33)
--- NOTE | 2024-10-26 20:15 | PROVIDER PROGRESS NOTE ---
Subjective Prog Note Date Prog Note Date: 10/26/24 Prog Note Time: 08:30 Subjective Pt reports feeling: Improved Subjective: Tired but he feels back to normal. Able to ambulate, walk in the room. Long- term bladder problems for which he takes Cialis 5 mg a day and Flomax. But no history of prostate cancer. No history of UTI. Denies chest pain, palpitations, shortness of breath. Current Medications Current Medications Current Medications: Current Medications Generic Name Dose Route Start Last Admin Trade Name Freq PRN Reason Stop Dose Admin Acetaminophen 650 mg 10/24/24 21:25 10/26/24 17:13 Acetaminophen 325 Mg Tablet PO 650 mg Q4HR PRN Administration Pain 1 to 4, or Fever Aspirin 81 mg 10/25/24 07:00 10/26/24 17:13 Aspirin Ec 81 Mg Tablet PO 81 mg AC NARCISO Administration Atorvastatin Calcium 80 mg 10/26/24 21:00 Atorvastatin 40 Mg Tablet PO QPM NARCISO Ceftriaxone Sodium 2 gm 10/25/24 09:00 10/26/24 08:41 Ceftriaxone 2 Gm Vial IVP 2 gm DAILY NARCISO Administration Enoxaparin Sodium 40 mg 10/25/24 09:00 10/26/24 08:41 Enoxaparin 40 Mg/0.4 Ml Syringe SUBQ 40 mg DAILY NARCISO Administration Finasteride 5 mg 10/25/24 11:00 10/26/24 08:42 Finasteride 5 Mg Tablet PO 5 mg DAILY NARCISO Administration Gabapentin 300 mg 10/24/24 23:55 10/25/24 22:17 Gabapentin 300 Mg Capsule PO 300 mg QPM NARCISO Administration Loperamide HCl 2 mg 10/25/24 09:12 10/25/24 10:09 Loperamide 2 Mg Capsule PO 2 mg QID PRN Administration Diarrhea Losartan Potassium 50 mg 10/25/24 09:00 10/26/24 08:42 Losartan 50 Mg Tablet PO 50 mg DAILY NARCISO Administration Metoprolol Succinate 50 mg 10/25/24 09:00 10/26/24 08:42 Metoprolol Succinate 50 Mg Tablet PO 50 mg DAILY NARCISO Administration Ondansetron HCl 4 mg 10/24/24 21:25 Ondansetron Odt 4 Mg Tablet TL Q6HR PRN Nausea / Vomiting Pantoprazole Sodium 40 mg 10/26/24 07:00 10/26/24 06:26 Pantoprazole 40 Mg Tablet PO 40 mg QDAC NARCISO Administration Icosapent Ethyl 1 2 each 10/26/24 11:59 10/26/24 17:14 Gram Capsule PO 2 each BIDAC NARCISO Administration Patient Own Med ( 1 each 10/26/24 12:01 10/26/24 13:09 Tadalafil 5mg) PO 1 each MoWeFr NARCISO Administration Desvenlafaxine 1 each 10/26/24 13:35 10/26/24 13:33 Succinate [Pristiq] PO 1 each 100 Mg Tablet DAILY NARCISO Administration Extended Release 24 Hr Sodium Chloride 10 ml 10/24/24 21:25 Sodium Chloride Flush 0.9% 10 Ml Syringe IVP PRN PRN NEEDED PER PROVIDER ORDERS Sodium Chloride 10 ml 10/25/24 01:00 10/26/24 19:40 Sodium Chloride Flush 0.9% 10 Ml Syringe IVP 10 ml 0100,0900,1700 NARCISO Administration Sterile Water 20 ml 10/25/24 09:00 10/26/24 08:41 Water For Injection,Sterile 10 Ml Vial MC 20 ml DAILY NARCISO Administration Tamsulosin HCl 0.8 mg 10/25/24 21:00 10/25/24 22:18 Tamsulosin 0.4 Mg Capsule PO 0.8 mg NIGHTLY NARCISO Administration Objective Vital Signs/Intake & Output Reviewed Vital Signs: Yes Vital Signs: Vital Signs x48h Temp Pulse Resp BP Pulse Ox 10/26/24 17:07 36.6 C 74 12 137/64 H 97 10/26/24 16:32 36.6 C 70 20 114/63 96 10/26/24 13:15 36.8 C 78 16 121/59 L 97 Intake & Output: Intake & Output 10/23/24 10/24/24 10/25/24 10/26/24 23:59 23:59 23:59 23:59 Intake Total 1700 / 1700 1230 / 1230 960 / 960 Balance 1700 / 1700 1230 / 1230 960 / 960 Weight (kg) 113.398 kg Objective General Appearance: positive No acute distress, Alert (Looks younger than stated age) and Other (5 foot 10 inch male at 113.39 kg that has lost 40 pounds on weight loss medication) Eyes Bilateral: positive PERRL ENT: positive ENT inspection nml and No signs of dehydration Neck: positive No JVD; negative Stiff neck Respiratory: positive Chest non-tender and No respiratory distress Cardiovascular: positive Regular rate & rhythm, No murmur and No gallop Abdomen: positive Non-tender, No organomegaly and Nml bowel sounds; negative Tenderness or Guarding Skin: positive Color nml, No rash and Warm Extremities: positive Non-tender, Full ROM and Nml appearance Neurologic/Psychiatric: positive Oriented x3, CN's nml (2-12), Motor nml and Other (When I walked in the room he was trying to fix the chair recliner and get it to the right position. Was leaning over, standing straight, bending over again, and walking around the chair. No ataxia or difficulty) Lab Results 10/27/24 05:05 10/27/24 05:05 Other Labs: Lab Results x24hrs 10/26/24 Range/Units 05:24 WBC 6.5 (4.8-10.8) x10^3/uL RBC 3.54 L (4.70-6.10) 10^6/uL Hgb 11.3 L (14.0-18.0) g/dL Hct 33.7 L (42.0-52.0) % MCV 95.2 H (80.0-94.0) fL MCH 31.9 H (27.0-31.0) pg MCHC 33.5 (32.0-36.0) g/dL RDW 13.1 (12.0-15.0) % Plt Count 129 L (130-450) 10^3/uL MPV 9.0 (7.4-11.4) fL Neut # (Auto) 4.3 (1.5-6.6) 10^3/uL Lymph # (Auto) 0.9 L (1.5-3.5) 10^3/uL [place] # (Auto) 1.1 H (0.0-1.0) 10^3/uL Eos # (Auto) 0.2 (0.0-0.7) 10^3/uL Baso # (Auto) 0.0 (0.0-0.1) 10^3/uL Absolute Nucleated RBC 0.00 x10^3/uL Nucleated RBC % 0.0 /100WBC Sodium 135 (135-145) mmol/L Potassium 3.8 (3.5-4.5) mmol/L Chloride 106 (101-111) mmol/L Carbon Dioxide 22 (21-32) mmol/L Anion Gap 7.0 (6-13) BUN 29 H (6-20) mg/dL Creatinine 1.5 H (0.6-1.3) mg/dL Estimated GFR (MDRD) 45 L (>89) Glucose 97 (74-104) mg/dL Calcium 8.2 L (8.5-10.3) mg/dL Magnesium 2.0 (1.7-2.3) mg/dL Assessment/Plan Problem List (1) Gram-negative bacteremia: Impression: Patient presented with rigors. The only other symptoms he had was a cough, which has been chronic for the last month as well as a postnasal drip. He has a long history of BPH with urinary hesitancy, incomplete feelings of emptying. UA was contaminated so no C&S. CT of abdomen Without acute abdominopelvic abnormality to explain bacteremia. Mild hepatic steatosis. Small umbilical Gould's hernia. No significant inflammation or bowel obstruction currently. Leukocytosis has resolved. Procalcitonin is elevated. Blood cultures 2/2 are showing E. coli. Susceptibilities are still pending as of today. I called the lab and they may be ready tomorrow morning. Continue IV Rocephin. Today is day 3 of 7 planned days of antibiotics. Hospitalist on before me stated that she would "Continue azithromycin for 3-day course for possible atypical coverage in case of pneumonia." but there is no azithromycin ordered. Since patient has no ss of cough, congestion or findings of pna on exam, I am not starting it. - Patient has improved clinically and wanted to go home with PICC for infusion, but he has reconsidered. He doesn't want to go home after all. He will complete abx here. 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 This was repaired. His last echo was completed about 6 months ago. Records requested and have not arrived as of today. Continue home medications including aspirin, metoprolol, losartan. Qualifiers: Associated angina: without angina Coronary Disease-Associated Artery/Lesion type: unspecified vessel or lesion type [place] vs. transplanted heart: [place] heart Qualified Code(s): I25.10 - Atherosclerotic heart disease of [place] coronary artery without angina pectoris (3) Sleep apnea: Impression: is bringing patient's home CPAP. Qualifiers: Sleep apnea type: unspecified type Qualified Code(s): G47.30 - Sleep apnea, unspecified (4) Hypertension: Impression: This am BP is 116/66. I will continue antihypertensives from home, losartan and metoprolol. Qualifiers: Hypertension type: unspecified Qualified Code(s): I10 - Essential (primary) hypertension (5) Obesity: Impression: Patient is on a GLP-1 in the outpatient setting. Has resulted in chronic diarrhea. Takes Imodium as needed at home. Continued. He will receive a dose of his GLP-1 tomorrow. Qualifiers: Obesity classification: unspecified obesity classification Obesity type: unspecified obesity type Serious obesity comorbidity presence: without serious comorbidity Qualified Code(s): E66.9 - Obesity, unspecified (6) BPH (benign prostatic hyperplasia): Impression: Continue home medications including tamsulosin, tadalafil, finasteride.I verified with pharmacy about the use of the tadalafil. It is for his prostate. It is an off label use. Patient states that he takes it Tuesday but the prescription is written for daily. I am opting to write it for daily. Qualifiers: Lower urinary tract symptom presence: symptoms absent Qualified Code(s): N40.0 - Benign prostatic hyperplasia without lower urinary tract symptoms
[2024-10-26] MEDS: ATORVASTATIN 40 MG TABLET PO SCH (21:03)
[2024-10-27 05:22] LABS: HCT - HEMATOCRIT 32.4 % (42.0-52.0); HGB - HEMOGLOBIN 10.8 g/dL (14.0-18.0); MEAN PLATELET VOLUME 9.0 fL (7.4-11.4); NRBC ABSOLUTE COUNT (AUTO) 0.00 x10^3/uL; NUCLEATED RED BLOOD CELLS AUTO 0.0 /100WBC; PLT - PLATELET COUNT 127 10^3/uL (130-450); RED CELL DISTRIBUTION WIDTH 13.2 % (12.0-15.0)
[2024-10-27 05:32] LABS: BUN - BLOOD UREA NITROGEN 29.0 mg/dL (6-20); CARBON DIOXIDE - CO2 25.0 mmol/L (21-32); CREATININE 1.6 mg/dL (0.6-1.3); GFR - MDRD 41.0 (>89)
[2024-10-27] MEDS: TIRZEPATIDE 15 MG/0.5 ML SUBQ SCH (08:30)
--- NOTE | 2024-10-27 14:57 | PROVIDER PROGRESS NOTE ---
Subjective Prog Note Date Prog Note Date: 10/27/24 Prog Note Time: 14:51 Subjective Pt reports feeling: Improved Subjective: Please find him sitting up in his chair in his room. Looking at the window. He says he has no complaints. No chest pain, palpitations, shortness of breath. No suprapubic pain, no flank pain. Denies fevers, chills, sweats. He is able to ambulate to the bathroom on his own. He is eating 100% of his food. I was able to report to him that his blood cultures were growing out E. coli and they are pansensitive. He is currently on Rocephin and the Rocephin is adequately covering it. Current Medications Current Medications Current Medications: Current Medications Generic Name Dose Route Start Last Admin Trade Name Freq PRN Reason Stop Dose Admin Acetaminophen 650 mg 10/24/24 21:25 10/26/24 17:13 Acetaminophen 325 Mg Tablet PO 650 mg Q4HR PRN Administration Pain 1 to 4, or Fever Aspirin 81 mg 10/25/24 07:00 10/27/24 11:46 Aspirin Ec 81 Mg Tablet PO 81 mg AC NARCISO Administration Atorvastatin Calcium 80 mg 10/26/24 21:00 10/26/24 21:03 Atorvastatin 40 Mg Tablet PO 40 mg QPM NARCISO Administration Ceftriaxone Sodium 2 gm 10/25/24 09:00 10/27/24 08:30 Ceftriaxone 2 Gm Vial IVP 2 gm DAILY NARCISO Administration Enoxaparin Sodium 40 mg 10/25/24 09:00 10/27/24 08:30 Enoxaparin 40 Mg/0.4 Ml Syringe SUBQ 40 mg DAILY NARCISO Administration Finasteride 5 mg 10/25/24 11:00 10/27/24 08:31 Finasteride 5 Mg Tablet PO 5 mg DAILY NARCISO Administration Gabapentin 300 mg 10/24/24 23:55 10/26/24 21:02 Gabapentin 300 Mg Capsule PO 300 mg QPM NARCISO Administration Loperamide HCl 4 mg 10/27/24 07:30 Loperamide 2 Mg Capsule PO QID PRN Diarrhea Losartan Potassium 50 mg 10/25/24 09:00 10/27/24 08:31 Losartan 50 Mg Tablet PO 50 mg DAILY NARCISO Administration Metoprolol Succinate 50 mg 10/25/24 09:00 10/27/24 08:31 Metoprolol Succinate 50 Mg Tablet PO 50 mg DAILY NARCISO Administration Ondansetron HCl 4 mg 10/24/24 21:25 Ondansetron Odt 4 Mg Tablet TL Q6HR PRN Nausea / Vomiting Pantoprazole Sodium 40 mg 10/26/24 07:00 10/27/24 06:16 Pantoprazole 40 Mg Tablet PO 40 mg QDAC NARCISO Administration Patient Own Med ( 1 each 10/26/24 12:01 10/26/24 13:09 Tadalafil 5mg) PO 1 each MoWeFr NARCISO Administration Desvenlafaxine 1 each 10/26/24 13:35 10/27/24 08:31 Succinate [Pristiq] PO 1 each 100 Mg Tablet DAILY NARCISO Administration Extended Release 24 Hr Icosapent Ethyl 1 2 each 10/27/24 06:29 10/27/24 08:32 Gram Capsule PO 2 each BID@0900,1700 NARCISO Administration Patient Own Med (( 1 each 10/27/24 09:00 10/27/24 08:30 Tirzepatide (Weight SUBQ 1 each Loss) [Zepbound] 15 OAW NARCISO Administration Mg/0.5 Ml Pen Injector) Sodium Chloride 10 ml 10/24/24 21:25 Sodium Chloride Flush 0.9% 10 Ml Syringe IVP PRN PRN NEEDED PER PROVIDER ORDERS Sodium Chloride 10 ml 10/25/24 01:00 10/27/24 08:32 Sodium Chloride Flush 0.9% 10 Ml Syringe IVP 10 ml 0100,0900,1700 NARCISO Administration Sterile Water 20 ml 10/25/24 09:00 10/27/24 08:30 Water For Injection,Sterile 10 Ml Vial MC 20 ml DAILY NARCISO Administration Tamsulosin HCl 0.8 mg 10/25/24 21:00 10/26/24 21:02 Tamsulosin 0.4 Mg Capsule PO 0.8 mg NIGHTLY NARCISO Administration Objective Vital Signs/Intake & Output Reviewed Vital Signs: Yes Vital Signs: Vital Signs x48h Temp Pulse Resp BP Pulse Ox 10/27/24 07:51 37.0 C 75 18 126/59 L 96 Intake & Output: Intake & Output 10/24/24 10/25/24 10/26/24 10/27/24 23:59 23:59 23:59 23:59 Intake Total 1700 / 1700 1230 / 1230 960 / 960 810 / 810 Balance 1700 / 1700 1230 / 1230 960 / 960 810 / 810 Weight (kg) 113.398 kg Objective General Appearance: positive No acute distress and Other (5 to 10 inch white male, looks stated age, 113.3 kg. Comfortable, talkative. Alert.) Eyes Bilateral: positive PERRL and EOMI ENT: positive No signs of dehydration Neck: positive No JVD; negative Stiff neck Respiratory: positive Chest non-tender, No respiratory distress and Breath sounds nml Cardiovascular: positive Regular rate & rhythm and No murmur Abdomen: positive Non-tender, No organomegaly, Nml bowel sounds and No distention Skin: positive Color nml, Warm and Dry Extremities: positive Non-tender, Full ROM and Nml appearance Neurologic/Psychiatric: positive Oriented x3, CN's nml (2-12), Motor nml, Sensation nml and Mood/affect nml Lab Results 10/27/24 05:05 10/27/24 05:05 Other Labs: Lab Results x24hrs 10/27/24 Range/Units 05:05 WBC 4.2 L (4.8-10.8) x10^3/uL RBC 3.39 L (4.70-6.10) 10^6/uL Hgb 10.8 L (14.0-18.0) g/dL Hct 32.4 L (42.0-52.0) % MCV 95.6 H (80.0-94.0) fL MCH 31.9 H (27.0-31.0) pg MCHC 33.3 (32.0-36.0) g/dL RDW 13.2 (12.0-15.0) % Plt Count 127 L (130-450) 10^3/uL MPV 9.0 (7.4-11.4) fL Neut # (Auto) 2.3 (1.5-6.6) 10^3/uL Lymph # (Auto) 0.8 L (1.5-3.5) 10^3/uL Branch # (Auto) 0.8 (0.0-1.0) 10^3/uL Eos # (Auto) 0.2 (0.0-0.7) 10^3/uL Baso # (Auto) 0.0 (0.0-0.1) 10^3/uL Absolute Nucleated RBC 0.00 x10^3/uL Nucleated RBC % 0.0 /100WBC Sodium 138 (135-145) mmol/L Potassium 3.9 (3.5-4.5) mmol/L Chloride 107 (101-111) mmol/L Carbon Dioxide 25 (21-32) mmol/L Anion Gap 6.0 (6-13) BUN 29 H (6-20) mg/dL Creatinine 1.6 H (0.6-1.3) mg/dL Estimated GFR (MDRD) 41 L (>89) Glucose 97 (74-104) mg/dL Calcium 8.6 (8.5-10.3) mg/dL Assessment/Plan Problem List (1) Gram-negative bacteremia: Impression: Patient presented with rigors. The only other symptoms he had was a cough, which has been chronic for the last month as well as a postnasal drip. He has a long history of BPH with urinary hesitancy, incomplete feelings of emptying. UA was contaminated so no C&S. CT of abdomen Without acute abdominopelvic abnormality to explain bacteremia. Mild hepatic steatosis. Small umbilical Gould's hernia. No significant inflammation or bowel obstruction currently. Leukocytosis has resolved. Procalcitonin is elevated. Blood cultures 2/2 are showing E. coli. Susceptibilities reported today and it is sensitive to all antibiotics including ampicillin, Unasyn, Ancef, Rocephin, imipenem, levofloxacin. Continue IV Rocephin. Today is day 4 of 7 planned days of antibiotics. Hospitalist on before me stated that she would "Continue azithromycin for 3-day course for possible atypical coverage in case of pneumonia." but there is no azithromycin ordered. Since patient has no ss of cough, congestion or findings of pna on exam, I am not starting it. - Patient has improved clinically and wanted to go home with PICC for infusion, but he has reconsidered. He doesn't want to go home after all. He will complete abx here. Plan is to transition him to swing bed status tomorrow. He will be discharged on day 7 of his antibiotics which is October 30. 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 This was repaired. His last echo was completed about 6 months ago. Records requested and have not arrived as of today. Continue home medications including aspirin, metoprolol, losartan. Qualifiers: Coronary Disease-Associated Artery/Lesion type: unspecified vessel or lesion type [place] vs. transplanted heart: [place] heart Associated angina: w [facility] angina Qualified Code(s): I25.10 - Atherosclerotic heart disease of [place] coronary artery without angina pectoris (3) Sleep apnea: Impression: is bringing patient's home CPAP. Qualifiers: Sleep apnea type: unspecified type Qualified Code(s): G47.30 - Sleep apnea, unspecified (4) Hypertension: Impression: Today blood pressure is 125/59, 126/59. I will continue antihypertensives from home, losartan and metoprolol. Qualifiers: Hypertension type: unspecified Qualified Code(s): I10 - Essential (primary) hypertension (5) Obesity: Impression: Patient is on a GLP-1 in the outpatient setting. Has resulted in chronic diarrhea. Takes Imodium as needed at home. Continued. He had his bring in a dose from home and he took a dose today. Qualifiers: Obesity type: unspecified obesity type Obesity classification: u nspecified obesity classification Serious obesity comorbidity presence: without serious comorbidity Qualified Code(s): E66.9 - Obesity, unspecified (6) BPH (benign prostatic hyperplasia): Impression: Continue home medications including tamsulosin, tadalafil, finasteride. I verified with pharmacy about the use of the tadalafil. It is for his prostate. It is an off label use. Patient states that he takes it Tuesday but the prescription is written for daily. I am opting to write it for daily. Qualifiers: Lower urinary tract symptom presence: symptoms absent Qualified Code(s): N40.0 - Benign prostatic hyperplasia without lower urinary tract symptoms
[2024-10-28 00:27] VITALS: TEMP 97.5
[2024-10-28 05:27] LABS: HCT - HEMATOCRIT 33.7 % (42.0-52.0); HGB - HEMOGLOBIN 10.9 g/dL (14.0-18.0); MEAN PLATELET VOLUME 9.4 fL (7.4-11.4); NRBC ABSOLUTE COUNT (AUTO) 0.00 x10^3/uL; NUCLEATED RED BLOOD CELLS AUTO 0.0 /100WBC; PLT - PLATELET COUNT 151 10^3/uL (130-450); RED CELL DISTRIBUTION WIDTH 13.1 % (12.0-15.0)
[2024-10-28 05:44] LABS: BUN - BLOOD UREA NITROGEN 28.0 mg/dL (6-20); CARBON DIOXIDE - CO2 24.0 mmol/L (21-32); CREATININE 1.5 mg/dL (0.6-1.3); GFR - MDRD 45.0 (>89)
[2024-10-28] MEDS: oxyCODONE 5 MG TABLET PO PRN (07:47)
[2024-10-28 13:02] VITALS: BP 120/53; O2SAT 95
[2024-10-28] MEDS: LOPERAMIDE 2 MG CAPSULE PO PRN (14:10)
--- OUTSIDE RECORDS SUMMARY | 2024-10-28 14:58 | EXTERNAL MEDICAL SUMMARY RPT | Continuity of Care Document ---
Author Organization [place] Address [address] [place] [id number] Phone Problems date description facility 2024-10-24 21:04 Systemic inflammator y response syndrome (SIRS) of non-infectious origin without acute organ dysfunction [facility]-25 09:44 Obesity, unspecified [facility] 2024-10-25 09:44 [facility] ap[facility], [facility] 2024-10-25 09:44 Essential (primary) hypertensio n [facility] 2024-10-25 09:44 Atherosclerotic hear t disease of [place] coronary artery without angina pectoris [facility] 2024-10-25 09:44 Systemic inflammator y response syndrome (SIRS) of non-infectious origin without acute organ dysfunction [facility] 2024-10-25 14:02 Obesity, unspecified [facility] 2024-10-25 14:02 Sleep apnea, unspecified [facility] 2024-10-25 14:02 Essential (primary) hypertensio n [facility] 2024-10-25 14:02 Atherosclerotic hear t disease of [place] coronary artery without angina pectoris [facility] 2024-10-25 14:02 Benign prostatic hyp erplasia without lower urinary tract symptoms [facility] 2024-10-25 14:02 Systemic inflammator y response syndrome (SIRS) of non-infectious origin without acute organ dysfunction [facility] 2024-10-25 14:02 Bacteremia [facility] 2024-10-26 11:13 Obesity, unspecified [facility] 2024-10-26 11:13 Sleep apnea, unspecified [facility] 2024-10-26 11:13 Essential (primary) hypertensio n [facility] 2024-10-26 11:13 Atherosclerotic hear t disease of [place] coronary artery without angina pectoris [facility] 2024-10-26 11:13 Benign prostatic hyp erplasia without lower urinary tract symptoms [facility] 2024-10-26 11:13 Systemic inflammator y response syndrome (SIRS) of non-infectious origin without acute organ dysfunction [facility] 2024-10-26 11:13 Bacteremia [facility] 2024-10-28 13:21 Obesity, unspecified [facility] 2024-10-28 13:21 Sleep apnea, unspecified [facility] 2024-10-28 13:21 Essential (primary) hypertensio n [facility] 2024-10-28 13:21 Atherosclerotic hear t disease of [place] coronary artery without angina pectoris [facility] 2024-10-28 13:21 Benign prostatic hyp erplasia without lower urinary tract symptoms [facility] 2024-10-28 13:21 Systemic inflammator y response syndrome (SIRS) of non-infectious origin without acute organ dysfunction [facility] 2024-10-28 13:21 Bacteremia [facility] 2024-10-28 13:31 Obesity, unspecified [facility] 2024-10-28 13:31 Sleep apnea, unspecified [facility] 2024-10-28 13:31 Essential (primary) hypertensio n [facility] 2024-10-28 13:31 Atherosclerotic hear t disease of [place] coronary artery without angina pectoris [facility] 2024-10-28 13:31 Benign prostatic hyp erplasia without lower urinary tract symptoms [facility] 2024-10-28 13:31 Systemic inflammator y response syndrome (SIRS) of non-infectious origin without acute organ dysfunction [facility] 2024-10-28 13:31 Bacteremia [facility] 2024-10-28 13:37 Obesity, unspecified [facility] 2024-10-28 13:37 [facility], [facility] 2024-10-28 13:37 Essential (primary) hypertensio n [facility] 2024-10-28 13:37 Atherosclerotic hear t disease of [place] coronary artery without angina pectoris [facility] 2024-10-28 13:37 Benign prostatic hyp erplasia without lower urinary tract symptoms [facility] 2024-10-28 13:37 Systemic inflammator y response syndrome (SIRS) of non-infectious origin without acute organ dysfunction [facility] 2024-10-28 13:37 Bacteremia [facility] 2024-10-28 13:49 Obesity, unspecified [facility] 2024-10-28 13:49 Sleep apnea, unspecified [facility] 2024-10-28 13:49 Essential (primary) hypertensio n [facility] 2024-10-28 13:49 Atherosclerotic hear t disease of [place] coronary artery without angina pectoris [facility] 2024-10-28 13:49 Benign prostatic hyp erplasia without lower urinary tract symptoms [facility] 2024-10-28 13:49 Systemic inflammator y response syndrome (SIRS) of non-infectious origin without acute organ dysfunction [facility] 2024-10-28 13:49 Bacteremia [facility] 2024-10-28 13:51 Obesity, unspecified [facility] 2024-10-28 13:51 Sleep apnea[facility] 2024-10-28 13:51 Essential (primary) hypertensio n [facility] 2024-10-28 13:51 Atherosclerotic hear t disease of [place] coronary artery without angina pectoris [facility] 2024-10-28 13:51 Benign prostatic hyp erplasia without lower urinary tract symptoms [facility] 2024-10-28 13:51 Systemic inflammator y response syndrome (SIRS) of non-infectious origin without acute organ dysfunction [facility] 2024-10-28 13:51 Bacteremia [facility] 2024-10-28 14:01 Obesity, unspecified [facility] 2024-10-28 14:01 Sleep apnea, unspecified [facility] 2024-10-28 14:01 Essential (primary) hypertensio n [facility] 2024-10-28 14:01 Atherosclerotic hear t disease of [place] coronary artery without angina pectoris [facility] 2024-10-28 14:01 Benign prostatic hyp erplasia without lower urinary tract symptoms [facility] 2024-10-28 14:01 Systemic inflammator y response syndrome (SIRS) of non-infectious origin without acute organ dysfunction [facility] 2024-10-28 14:01 [facility] 2024-10-28 14:15 Obesity, unspecified [facility] 2024-10-28 14:15 Sleep apnea, unspecified [facility] 2024-10-28 14:15 Essential (primary) hypertensio n [facility] 2024-10-28 14:15 Atherosclerotic hear t disease of [place] coronary artery without angina pectoris [facility] 2024-10-28 14:15 Benign prostatic hyp erplasia without lower urinary tract symptoms [facility] 2024-10-28 14:15 Systemic inflammator y response syndrome (SIRS) of non-infectious origin without acute organ dysfunction [facility] 2024-10-28 14:15 Bacteremia [facility] 2024-10-28 14:21 Obesity, unspecified [facility] 2024-10-28 14:21 Sleep apnea, [facility] 2024-10[facility]28 14:21 Essential (primary) hypertensio n [facility] 2024-10-28 14:21 Atherosclerotic hear t disease of [place] coronary artery without angina pectoris [facility] 2024-10-28 14:21 Benign prostatic hyp erplasia without lower urinary tract symptoms [facility] 2024-10-28 14:21 Systemic inflammator y response syndrome (SIRS) of non-infectious origin without acute organ dysfunction [facility] 2024-10-28 14:21 Bacteremia [facility] 2024-10-28 14:35 Obesity, unspecified [facility] 2024-10-28 14:35 Sleep apnea, unspecified [facility] 2024-10-28 14:35 Essential (primary) [facility]ensio n [facility] 2024-10-28 14:35 Atherosclerotic hear t disease of [place] coronary artery without angina pectoris [facility] 2024-10-28 14:35 Benign prostatic hyp erplasia without lower urinary tract symptoms [facility] 2024-10-28 14:35 Systemic inflammator y response syndrome (SIRS) of non-infectious origin without acute organ dysfunction [facility] 2024-10-28 14:35 Bacteremia [facility] Results/Labs test date facility value unit notes Result panel 1 BLOOD CULTURE ID PCR 2024-10-24 18:08 [facility] (missing) (missing) (missing) CULTURE, BLOOD #1 2024-10-24 18:08 [facility] (missing) (missing) (missing) CEFEPIME 2024-10-24 18:08 [facility] <=0.12 (missing) (missing) ERTAPENEM 2024-10-24 18:08 [facility] <=0.12 (missing) (missing) LEVOFLOXACIN 2024-10-24 18:08 [facility] <=0.12 (missing) (missing) CEFTRIAXONE 2024-10-24 18:08 [facility] <=0.25 (missing) (missing) CIPROFLOXACIN 2024-10-24 18:08 [facility] <=0.25 (missing) (missing) GENTAMICIN 2024-10-24 18:08 [facility] <=1 (missing) (missing) TOBRAMYCIN 2024-10-24 18:08 [facility] <=1 (missing) (missing) AMPICILLIN/SULBACTAM 2024-10-24 18:08 [facility] <=2 (missing) (missing) AMPICILLIN 2024-10-24 18:08 [facility] <=2 (missing) This organism is NEGATIVE for Extended Spectrum Beta Lactamase TRIMETHOPRIM/SULFAMET HOXAZOLE 2024-10-24 18:08 [facility] <=20 (missing) (missing) CEFAZOLIN 2024-10-24 18:08 [facility] <=4 (missing) (missing) BLOOD CULTURE ID PCR 2024-10-24 18:08 [facility] -See Blood Culture result for susceptibiliti es. (missing) (missing) NUCLEATED RED BLOOD CELLS AUTO 2024-10-24 18:08 [facility] 0.0 /100wbc (missing) EOSINOPHILS # (AUTO) 2024-10-24 18:08 [facility] 0.0 10 3/ul (missing) NRBC ABSOLUTE COUNT (AUTO) 2024-10-24 18:08 [facility] 0.00 x10 3/ul (missing) BASOPHILS # (AUTO) 2024-10-24 18:08 [facility] 0.1 10 3/ul (missing) LYMPHOCYTES # (AUTO) 2024-10-24 18:08 [facility] 0.7 10 3/ul (missing) BILIRUBIN,TOTAL 2024-10-24 18:08 [facility] 0.8 mg/dl As of September 2022 testing method has changed, this may include reference ranges. BLOOD CULTURE ID PCR 2024-10-24 18:08 [facility] 10-24-24/51325 10-24-24/1808 (missing) (missing) IMIPENEM 2024-10-24 18:08 [facility] [place] 1 (missing) (missing) MONOCYTES # (AUTO) 2024-10-24 18:08 [facility] [place] 1.2 10 3/ul (missing) ALBUMIN/GLOBULIN RATIO 2024-10-24 18:08 [facility] 1.7 (missing) (missing) CREATININE 2024-10-24 18:08 [facility] [place] 1.8 mg/dl As of September 2022 testing method has changed, this may include reference ranges. CHLORIDE 2024-10-24 18:08 [facility] [place] 102 mmol/l As of September 2022 testing method has changed, this may include reference ranges. WHITE BLOOD COUNT 2024-10-24 18:08 [facility] [place] 11.2 x10 3/ul (missing) GLUCOSE 2024-10-24 18:08 [facility] 114 mg/dl As of September 2022 testing method has changed, this may include reference ranges. HGB - HEMOGLOBIN 2024-10-24 18:08 [facility] [place] 12.6 g/dl (missing) RED CELL DISTRIBUTION WIDTH 2024-10-24 18:08 [facility] [place] 13.1 % (missing) SODIUM 2024-10-24 18:08 [facility] 132 mmol/l (missing) PLT - PLATELET COUNT 2024-10-24 18:08 [facility] [place] 157 10 3/ul (missing) GLOBULIN 2024-10-24 18:08 [facility] [place] 2.5 g/dl (missing) CARBON DIOXIDE - CO2 2024-10-24 18:08 [facility] [place] 24 mmol/l As of September 2022 testing method has changed, this may include reference ranges. AST ASPARTATE AMINOTRANSFERASE 2024-10-24 18:08 [facility] 25 iu/l As of September 2022 testing method has changed, this may include reference ranges. ALT ALANINE AMINOTRANSFERASE 2024-10-24 18:08 [facility] 29 iu/l As of September 2022 testing method has changed, this may include reference ranges. RED BLOOD COUNT 2024-10-24 18:08 [facility] 3.96 10 6/ul (missing) MEAN CORPUSCULAR HEMOGLOBIN 2024-10-24 18:08 [facility] 31.8 pg (missing) MEAN CORPUSCULAR HGB CONC 2024-10-24 18:08 [facility] 33.2 g/dl (missing) GFR - MDRD 2024-10-24 18:08 [facility] 36 (missing) Social History date description facility
--- NOTE | 2024-10-28 15:48 | Discharge Summary ---
"Discharge Summary Admit Date: 10/24/24 Discharge Date: 10/28/24 Discharging Provider: Mari Perry MD Primary Care Provider: Abraham Gomez MD ([facility]) Code Status: Attempt Resuscitation Discharge Facility Name: Swing Bed Status DIAGNOSES Discharge Diagnoses with Status of Each Condition: 1. E. coli bacteremia 2. Probable prostatitis 3. Benign prostatic hypertrophy with LUTS 4. Coronary artery disease 5. Obstructive sleep apnea 6. Hypertension 7. Morbid obesity 8. Diarrhea secondary to medication 9. Headache HPI History of Present Illness: 84-year-old gentleman who presents to the emergency department complaining of fatigue and rigors x 1 day. He has been coughing for about a month and has had some fatigue over that month but nothing like he started to have this morning. He woke up at 4 AM with shaking rigors. These have been occurring intermittently through the day associated with severe crushing fatigue and some shortness of breath today. He has not been having any urinary difficulties although he does have a history of BPH which is treated with finasteride and tamsulosin. He has a history of coronary artery disease and carotid stenosis status post stenting of both of these history of a flutter status post cardioversion sees energy engineer at [facility]. Except for this cough he has been feeling well in recent days. Lives with his ; functions independently in the community. Lives in [place]. [place]. His CODE STATUS is full code. His would make his medical decisions where he unable to do so. CONSULTS | PROCEDURES Procedures: 1. Chest x-ray October 24 with mild cardiomegaly and findings suggestive of pulmonary edema although concurrent infectious/inflammatory process could not be excluded. 2. Chest CT without airspace consolidation. No pleural effusions. Mild septal thickening at the bases. Multiple pulmonary nodules. Borderline cardiomegaly. Follow-up imaging is optimal if the patient is considered high risk for pulmonary malignancy with a CT in 1 year. 3. Abdomen pelvis CT had mild hepatic steatosis. Unremarkable kidneys without hydronephrosis or masses. No abdominal aortic aneurysm. No lymphadenopathy. Bowel and peritoneum were without pathology. Small umbilical recurrent hernia but no significant inflammation or bowel obstruction. 4. October 24 blood culture of right and left arm positive for E. coli that is sensitive to all tested antibiotics. HOSPITAL COURSE Hospital Course: While the patient had rigors and elevated white cell count, the source of his infection was not immediately obvious on review of systems. While he did have a history of prostate problems he did not have urgency, frequency or dysuria. And his UA had squamous cells which could not lend to interpretation for infection. He subsequently had positive blood cultures for gram-negative rods. CT of abdomen and pelvis was obtained and no pathology identified. He was treated empirically with IV antibiotics. We awaited sensitivities and that report confirmed that he was on the correct antibiotics. He will need 7 days of IV antibiotic therapy. Today, at discharge, he is on day day 5. He will need 2 more days of antibiotics. Initially he would like to go home to get those 2 days but changed his mind and preferred to stay here. As such we are discharging him to swing bed status to complete those days of antibiotics with anticipated discharge October 30. At discharge he is alert and oriented to person, place, time and situation. He has been ambulating in his room without any assist and eating his meals without difficulty. He takes Zepbound once a week. He did his usual dose on October 25. He develops diarrhea secondary to the Zepbound. And takes loperamide. On the day of discharge she had headache which was unusual for him. He says that he usually never gets headaches. Tylenol did not work. He is not allowed nonsteroidals because of history of peptic ulcer disease. 1 oxycodone took away the headache. Blood pressure at discharge is 120/53, pulse 68, respiration 16, temperature 36.4. He is 95% saturated on room air. He is 5 feet 10 inches tall, 111.39 kg. Neck is supple Lungs are clear to auscultation and percussion He has a regular rate and rhythm without a murmur Abdomen is obese, soft, nontender, protuberant. Normal bowel sounds Extremities without edema Neurologically he is alert and oriented to person, place, time and situation. No focal deficits. No ataxia. Other than completing his antibiotics, patient will be kept on his usual home medications. He has no need for PT or OT. Greater than 30 minutes was spent corning discharge This document was made in part using voice recognition software. While efforts are made to proofread this document, sound alike and grammatical errors may occur. ALLERGIES Allergies Allergy/AdvReac Type Severity Reaction Status Date / Time Sulfa (Sulfonamide Allergy Severe Hives Verified 10/24/24 17:24 Antibiotics) lisinopril Allergy Mild Cough Verified 10/24/24 17:24 MEDICATIONS Ambulatory Orders Medication Instructions Recorded Confirmed metoprolol succinate 50 mg 50 mg PO DAILY 07/13/1301/12 tablet,extended release 24 hr aspirin 81 mg tablet,delayed 81 mg PO DAILY 12/03/13 0 10/28/24 release (Adult Low Dose Aspirin) losartan 50 mg tablet See Rx Instructions PO DAILY 12/02/17 10/28/24 coQ10 (ubiquinol) 100 mg capsule 100 mg PO DAILY 10/2510/28/24 desvenlafaxine succinate 100 mg 100 mg PO DAILY 10/28/24 tablet,extended release 24 hr finasteride 5 mg tablet 5 mg PO HS 10/25/24 10/28/24 gabapentin 300 mg capsule 300 mg PO HS 10/25/24 icosapent ethyl 1 gram capsule 2 g PO BID 10/25/2401/12 omeprazole 20 mg capsule,delayed 20 mg PO DAILY 10/28/24 release rosuvastatin 40 mg tablet 40 mg PO HS 10/25/24 5 tamsulosin 0.4 mg capsule 0.8 mg PO DAILY 10/25/2401/12 tirzepatide (weight loss) 15 15 mg subcut OAW 10/25/24 10/28/24 mg/0.5 mL subcutaneous pen injector (Zepbound) tadalafil 5 mg tablet (Cialis) 5 mg PO .COMPLEX 10/28/24 PHYSICAL EXAM AT DISCHARGE Vital Signs: Vital Signs x48h Temp Pulse Resp BP Pulse Ox 10/28/24 13:01 36.4 C L 68 16 120/53 L 95 LABS 10/28/24 04:45 10/28/24 04:45 Discharge Plan Discharge Patient Disposition: 30 Still A Patient (Swing) Condition: Stable Medically Cleared Date:: 10/28/24 Activity Restrictions: Activity as Tolerated Diet: Regular Health Concerns: You came to the hospital because of chills, shivering that progressed to serious tremors that were so bad you could not even walk with good balance. You had to use a cane. Once the shaking resolved you felt wiped out and weak. You came to the emergency room and we found you to have a severe urinary tract infection. Already have a history of benign prostatic hypertrophy which you treat with finasteride, tamsulosin, and Cialis. We found you to have E. coli bacteria growing in your blood. That was the cause of the severe shaking which caused sepsis and flooding of your bloodstream with the bacteria. Your symptoms have abated and you are doing well. But you still need a few more days of IV antibiotics. We are discharging you from acute care status and transitioning you to swing bed status to complete your antibiotics. Print Language: Bengali Vitals documented within 30 minutes of discharge?: Yes"
--- OUTSIDE RECORDS SUMMARY | 2024-11-22 14:57 | EXTERNAL MEDICAL SUMMARY RPT | Continuity of Care Document ---
Author Organization [facility] Address [address] [place] [id number] Phone Problems date description facility 2024-10-24 21:04 Systemic inflammator y response syndrome (SIRS) of non-infectious origin without acute organ dysfunction [facility]24-10-25 09:44 Obesity, unspecified [facility] 2024-10-25 09:44 [facility] ap[facility], [facility] 2024-10-25 09:44 Essential (primary) hypertensio n [facility] 2024-10-25 09:44 Atherosclerotic hear t disease of [place] coronary artery without angina pectoris [facility] 2024-10-25 09:44 Systemic inflammator y response syndrome (SIRS) of non-infectious origin without acute organ dysfunction [facility] 2024-10-25 14:02 Obesity, unspecified [facility] 2024-10-25 14:02 Sleep apnea, unspecified [facility] 2024-10-25 14:02 Essential (primary) hypertensio n [facility] 2024-10-25 14:02 Atherosclerotic hear t disease of [place] coronary artery without angina pectoris [facility] 2024-10-25 14:02 Benign prostatic hyp erplasia without lower urinary tract symptoms [facility] 2024-10-25 14:02 Systemic inflammator y response syndrome (SIRS) of non-infectious origin without acute organ dysfunction [facility] 2024-10-25 14:02 Bacteremia [facility] 2024-10-26 11:13 Obesity, unspecified [facility] 2024-10-26 11:13 Sleep apnea, [facility] 2024-10-26 11:13 Essential (primary) [facility]ensio n [facility] 2024-10-26 11:13 Atherosclerotic hear t disease of [place] coronary artery without angina pectoris [facility] 2024-10-26 11:13 Benign prostatic hyp erplasia without lower urinary tract symptoms [facility] 2024-10-26 11:13 Systemic inflammator y response syndrome (SIRS) of non-infectious origin without acute organ dysfunction [facility] 2024-10-26 11:13 Bacteremia [facility] 2024-10-28 13:21 Obesity, unspecified [facility] 2024-10-28 13:21 Sleep apnea, unspecified [facility] 2024-10-28 13:21 Essential (primary) hypertensio n [facility] 2024-10-28 13:21 Atherosclerotic hear t disease of [place] coronary artery without angina pectoris [facility] 2024-10-28 13:21 Benign prostatic hyp erplasia without lower urinary tract symptoms [facility] 2024-10-28 13:21 Systemic inflammator y response syndrome (SIRS) of non-infectious origin without acute organ dysfunction [facility] 2024-10-28 13:21 Bacteremia [facility] 2024-10-28 13:31 Obesity, unspecified [facility] 2024-10-28 13:31 Sleep apnea, unspecified [facility] 2024-10-28 13:31 Essential (primary) hypertensio n [facility] 2024-10-28 13:31 Atherosclerotic hear t disease of [place] coronary artery without angina pectoris [facility] 2024-10-28 13:31 Benign prostatic hyp erplasia without lower urinary tract symptoms [facility] 2024-10-28 13:31 Systemic inflammator y response syndrome (SIRS) of non-infectious origin without acute organ dysfunction [facility] 2024-10-28 13:31 Bacteremia [facility] 2024-10-28 13:37 Obesity, unspecified [facility] 2024-10-28 13:37 Sleep apnea, unspecified [facility] 2024-10-28 13:37 Essential (primary) hypertensio n [facility] 2024-10-28 13:37 Atherosclerotic hear t disease of [place] coronary artery without angina pectoris [facility] 2024-10-28 13:37 Benign prostatic hyp erplasia without lower urinary tract symptoms [facility] 2024-10-28 13:37 Systemic inflammator y response syndrome (SIRS) of non-infectious origin without acute organ dysfunction [facility] 2024-10-28 13:37 Bacteremia [facility] 2024-10-28 13:49 Obesity, unspecified [facility] 2024-10-28 13:49 Sleep apnea, unspecified [facility] 2024-10-28 13:49 Essential (primary) hypertensio n [facility] 2024-10-28 13:49 Atherosclerotic hear t disease of [place] coronary artery without angina pectoris [facility] 2024-10-28 13:49 Benign prostatic hyp erplasia without lower urinary tract symptoms [facility] 2024-10-28 13:49 Systemic inflammator y response syndrome (SIRS) of non-infectious origin without acute organ dysfunction [facility] 2024-10-28 13:49 Bacteremia [facility] 2024-10-28 13:51 Obesity, unspecified [facility] 2024-10-28 13:51 Sleep apnea, unspecified [facility] 2024-10-28 13:51 Essential (primary) hypertensio n [facility] 2024-10-28 13:51 Atherosclerotic hear t disease of [place] coronary artery without angina pectoris [facility] 2024-10-28 13:51 Benign prostatic hyp erplasia without lower urinary tract symptoms [facility] 2024-10-28 13:51 Systemic inflammator y response syndrome (SIRS) of non-infectious origin without acute organ dysfunction [facility] 2024-10-28 13:51 Bacteremia [facility] 2024-10-28 14:01 Obesity, unspecified [facility] 2024-10-28 14:01 Sleep apnea, [facility] 2024-10-28 14:01 Essential (primary) hypertensio n [facility] 2024-10-28 14:01 Atherosclerotic hear t disease of [place] coronary artery without angina pectoris [facility] 2024-10-28 14:01 Benign prostatic hyp erplasia without lower urinary tract symptoms [facility] 2024-10-28 14:01 Systemic inflammator y response syndrome (SIRS) of non-infectious origin without acute organ dysfunction [facility] 2024-10-28 14:01 Bacteremia [facility] 2024-10-28 14:15 Obesity, unspecified [facility] 2024-10-28 14:15 Sleep apnea, [facility] 2024-10-28 14:15 Essential (primary) hypertensio n [facility] 2024-10-28 14:15 Atherosclerotic hear t disease of [place] coronary artery without angina pectoris [facility] 2024-10-28 14:15 Benign prostatic hyp erplasia without lower urinary tract symptoms [facility] 2024-10-28 14:15 Systemic inflammator y response syndrome (SIRS) of non-infectious origin without acute organ dysfunction [facility] 2024-10-28 14:15 Bacteremia [facility] 2024-10-28 14:21 Obesity, unspecified [facility] 2024-10-28 14:21 Sleep apnea, unspecified [facility] 2024-10-28 14:21 Essential (primary) [facility]ensio n [facility] 2024-10-28 14:21 Atherosclerotic hear t disease of [place] coronary artery without angina pectoris [facility] 2024-10-28 14:21 Benign prostatic hyp erplasia without lower urinary tract symptoms [facility] 2024-10-28 14:21 Systemic inflammator y response syndrome (SIRS) of non-infectious origin without acute organ dysfunction [facility] 2024-10-28 14:21 Bacteremia [facility] 2024-10-28 14:35 Obesity, unspecified [facility] 2024-10-28 14:35 Sleep apnea, unspecified [facility] 2024-10-28 14:35 Essential (primary) [facility]ensio n [facility] 2024-10-28 14:35 Atherosclerotic hear t disease of [place] coronary artery without angina pectoris [facility] 2024-10-28 14:35 Benign prostatic hyp erplasia without lower urinary tract symptoms [facility] 2024-10-28 14:35 Systemic inflammator y response syndrome (SIRS) of non-infectious origin without acute organ dysfunction [facility] 2024-10-28 14:35 Bacteremia [facility] 2024-10-28 14:56 Obesity, unspecified [facility] 2024-10-28 14:56 Sleep apnea, [facility] 2024-10-28 14:56 Essential (primary) [facility]ensio n [facility] 2024-10-28 14:56 Atherosclerotic hear t disease of [place] coronary artery without angina pectoris [facility] 2024-10-28 14:56 Benign prostatic hyp erplasia without lower urinary tract symptoms [facility] 2024-10-28 14:56 Systemic inflammator y response syndrome (SIRS) of non-infectious origin without acute organ dysfunction [facility] 2024-10-28 14:56 Bacteremia [facility] 2024-10-28 14:57 Obesity, unspecified [facility] 2024-10-28 14:57 Sleep apnea, unspecified [facility] 2024-10-28 14:57 Essential (primary) hypertensio n [facility] 2024-10-28 14:57 Atherosclerotic hear t disease of [place] coronary artery without angina pectoris [facility] 2024-10-28 14:57 Benign prostatic hyp erplasia without lower urinary tract symptoms [facility] 2024-10-28 14:57 Systemic inflammator y response syndrome (SIRS) of non-infectious origin without acute organ dysfunction [facility] 2024-10-28 14:57 Bacteremia [facility] 2024-10-28 15:44 Obesity, unspecified [facility] 2024-10-28 15:44 Sleep apnea, [facility] 2024-10-28 15:44 Essential (primary) [facility]ensio n [facility] 2024-10-28 15:44 Atherosclerotic hear t disease of [place] coronary artery without angina pectoris [facility] 2024-10-28 15:44 Benign prostatic hyp erplasia without lower urinary tract symptoms [facility] 2024-10-28 15:44 Systemic inflammator y response syndrome (SIRS) of non-infectious origin without acute organ dysfunction [facility] 2024-10-28 15:44 Bacteremia [facility] 2024-10-29 10:14 Obesity, unspecified [facility] 2024-10-29 10:14 Sleep apnea, unspecified [facility] 2024-10-29 10:14 Essential (primary) hypertensio n [facility] 2024-10-29 10:14 Atherosclerotic hear t disease of [place] coronary artery without angina pectoris [facility] 2024-10-29 10:14 Benign prostatic hyp erplasia without lower urinary tract symptoms [facility] 2024-10-29 10:14 Weakness [facility] 2024-10-29 10:14 Systemic inflammator y response syndrome (SIRS) of non-infectious origin without acute organ dysfunction [facility] 2024-10-29 10:14 Chills (without fever) [facility] 2024-10-29 10:14 Bacteremia [facility] 2024-10-29 10:54 Unspecified Escheric hia coli [E. coli] as the cause of diseases classified elsewhere [facility] 2024-10-29 10:54 Sleep apnea, unspecified [facility] 2024-10-29 10:54 Essential (primary) hypertensio [facility] 2024-10-29 10:54 Bacteremia [facility] 2024-10-30 08:13 Unspecified Esc[place] hia coli [E. coli] as the cause of diseases classified elsewhere [facility] 2024-10-30 08:13 Sleep apnea, unspecified [facility] 2024-10-30 08:13 Essential (primary) hypertensio [facility] 2024-10-30 08:13 Bacteremia [facility] 2024-10-30 11:41 Unspecified Esc[place] hia coli [E. coli] as the cause of diseases classified elsewhere [facility] 2024-10-30 11:41 Sleep apnea, unspecified [facility] 2024-10-30 11:41 Essential (primary) hypertensio [facility] 2024-10-30 11:41 Bacteremia [facility] 2024-10-30 12:24 Unspecified Escheric hia coli [E. coli] as the cause of diseases classified elsewhere [facility] 2024-10-30 12:24 Sleep apnea, unspecified [facility] 2024-10-30 12:24 Essential (primary) hypertensio n [facility] 2024-10-30 12:24 Bacteremia [facility] 2024-10-30 14:18 Unspecified [place] hia coli [E. coli] as the cause of diseases classified elsewhere [facility] 2024-10-30 14:18 Sleep apnea, unspecified [facility] 2024-10-30 14:18 Essential (primary) hypertensio n [facility] 2024-10-30 14:18 Bacteremia [facility] 2024-11-01 13:05 Unspecified [place] hia coli [E. coli] as the cause of diseases classified elsewhere [facility] 2024-11-01 13:05 Sleep apnea, unspecified [facility] 2024-11-01 13:05 [facility] 2024-11-01 13:05 Urinary tract infection, site n ot specified [facility] Results/Labs test date facility value unit notes Result panel 1 BLOOD CULTURE ID PCR 2024-10-24 18:08 [facility] (missing) (missing) (missing) CULTURE, BLOOD #1 2024-10-24 18:08 [facility] (missing) (missing) (missing) CEFEPIME 2024-10-24 18:08 [...] Spectrum Beta Lactamase TRIMETHOPRIM/SULFAMET HOXAZOLE 2024-10-24 18:08 [facility] <=20 (missing) (missing) CEFAZOLIN 2024-10-24 18:08 [facility] <=4 (missing) (missing) BLOOD CULTURE ID PCR 2024-10-24 18:08 [facility] -See Blood Culture result for susceptibiliti es. (missing) (missing) NUCLEATED RED BLOOD CELLS AUTO 2024-10-24 18:08 [facility] 0.0 /100wbc (missing) EOSINOPHILS # (AUTO) 2024-10-24 18:08 [facility] 0.0 10 3/ul (missing) NRBC ABSOLUTE COUNT (AUTO) 2024-10-24 18:08 [facility] 0.00 x10 3/ul (missing) BASOPHILS # (AUTO) 2024-10-24 18:08 [facility] 0.1 10 3/ul (missing) LYMPHOCYTES # (AUTO) 2024-10-24 18:08 [facility] 0.7 10 3/ul (missing) BILIRUBIN,TOTAL 2024-10-24 18:08 [facility] 0.8 mg/dl As of September 2022 testing method has changed, this may include reference ranges. BLOOD CULTURE ID PCR 2024-10-24 18:08 [facility] 10-24-24/[id number] 10-24-24/1808 (missing) (missing) IMIPENEM 2024-10-24 18:08 [facility] 1 (missing) (missing) MONOCYTES # (AUTO) 2024-10-24 18:08 [facility] 1.2 10 3/ul (missing) ALBUMIN/GLOBULIN RATIO 2024-10-24 18:08 [facility] 1.7 (missing) (missing) CREATININE 2024-10-24 18:08 [facility] 1.8 mg/dl As of September 2022 testing method has changed, this may include reference ranges. CHLORIDE 2024-10-24 18:08 [facility] 102 mmol/l As of September 2022 testing method has changed, this may include reference ranges. WHITE BLOOD COUNT 2024-10-24 18:08 [facility] 11.2 x10 3/ul (missing) GLUCOSE 2024-10-24 18:08 [facility] 114 mg/dl As of September 2022 testing method has changed, this may include reference ranges. HGB - HEMOGLOBIN 2024-10-24 18:08 [facility] 12.6 g/dl (missing) RED CELL DISTRIBUTION WIDTH 2024-10-24 18:08 [facility] 13.1 % (missing) SODIUM 2024-10-24 18:08 [facility] 132 mmol/l (missing) PLT - PLATELET COUNT 2024-10-24 18:08 [facility] 157 10 3/ul (missing) GLOBULIN 2024-10-24 18:08 [facility] 2.5 g/dl (missing) CARBON DIOXIDE - CO2 2024-10-24 18: [facility] 24 mmol/l As of September 2022 testing method has changed, this may include reference ranges. AST ASPARTATE AMINOTRANSFERASE 2024-10-24 18:08 [facility] 25 iu/l As of September 2022 testing method has changed, this may include reference ranges. ALT ALANINE AMINOTRANSFERASE 2024-10-24 18:08 [email or web address] 29 iu/l As of September 2022 testing method has changed, this may include reference ranges. RED BLOOD COUNT 2024-10-24 18:08 [email or web address] 3.96 10 6/ul (missing) MEAN CORPUSCULAR HEMOGLOBIN 2024-10-24 18:08 [facility] 31.8 pg (missing) MEAN CORPUSCULAR HGB CONC 2024-10-24 18:08 [facility] 33.2 g/dl (missing) GFR - MDRD 2024-10-24 18:08 [facility] 36 (missing) Social History date description facility
== END 2024-10-28 13:23 | disposition swing bed (61) | DRG 872 ==
LOC: ED 17:17 → MS2 17:17 → OBSVTOIN 21:03 → MS2 21:27 → UNDODISIN 10-28 13:31
PROVIDERS: ADMIT Physician Assistant Medical; ATTEND Physician Assistant Medical
DX: N39.0 Urinary tract infection, site not specified; E66.01 Morbid (severe) obesity due to excess calories; R65.10 Systemic inflammatory response syndrome (SIRS) of non-infectious origin without acute organ dysfunction; R68.83 Chills (without fever); Z79.82 Long term (current) use of aspirin; R53.1 Weakness; A41.51 Sepsis due to Escherichia coli [E. coli]; K52.1 Toxic gastroenteritis and colitis; Z79.899 Other long term (current) drug therapy; I25.10 Atherosclerotic heart disease of native coronary artery without angina pectoris; Z95.5 Presence of coronary angioplasty implant and graft; N40.1 Benign prostatic hyperplasia with lower urinary tract symptoms; T50.905A Adverse effect of unspecified drugs, medicaments and biological substances, initial encounter; R51.9 Headache, unspecified; Z20.828 Contact with and (suspected) exposure to other viral communicable diseases; Z20.822 Contact with and (suspected) exposure to COVID-19; Z68.35 Body mass index [BMI] 35.0-35.9, adult; Z20.818 Contact with and (suspected) exposure to other bacterial communicable diseases; E66.9 Obesity, unspecified; I10 Essential (primary) hypertension; G47.33 Obstructive sleep apnea (adult) (pediatric); R05.9 Cough, unspecified